=== PATIENT | male | born 1955 | race Caucasian/White ===

== ENCOUNTER 2018-04-20 05:29 | Inpatient (IN) ==
--- NOTE | 2018-04-20 06:00 | ED ---
HPI General Chief Complaint: Abdominal Pain Stated Complaint: Abd pain x 3 days Time Seen by Provider: 04/20/18 05:41 Source: patient and family Mode of arrival: ambulatory Limitations: no limitations History of Present Illness HPI narrative: 63-year-old male presents emerged from complaining of abdominal pain is been ongoing for the past 3 days or so. He reports that he had some myalgias, lethargy, ill feeling, and went to an urgent care. He states that the PA there gave a prescription for amoxicillin. No URI symptoms. No fever. No urinary symptoms. He states shortly after starting the antibiotic he began getting abdominal pain, concentrated in the left upper abdomen but radiating throughout the abdomen. He otherwise has been feeling generally well and healthy prior to this. No nausea or vomiting. Appetite's been a little bit down. No diarrhea. No urinary symptoms. Still no URI symptoms. No other complaints. Related Data Home Medications Medication Instructions Recorded Confirmed amoxicillin 250 mg PO BID 04/20/18 04/20/18 aspirin [Aspir-Low] 81 mg PO DAILY 04/20/18 04/20/18 Allergies Allergy/AdvReac Type Severity Reaction Status Date / Time No Known Allergies Allergy Verified 04/20/18 05:49 Review of Systems ROS: all other systems reviewed are negative [facility] Medical History Medical History History of transient ischemic attack (TIA) (Acute) Surgical History Surgical History History of orthopedic surgery (Acute) Hx of cornea transplant (Acute) Hx of hernia repair (Acute) Social History Social History Substance History: No History of Abuse Smoking Status: Never smoker How Often Do You Have a Drink Containing Alcohol: Never Recent Travel in [facility] within the Last 8 Weeks: No Recent Out of Country Travel within the Last 8 Weeks: No Immunization History Tetanus Immunization: <5 Years Exam Narrative Exam Narrative: GENERAL: Generally well-appearing 63-year-old man, no acute distress. SKIN: Focused skin assessment warm/dry. HEAD: Atraumatic. Normocephalic. EYES: Pupils equal and round. No scleral icterus. No injection or drainage. ENT: No nasal bleeding or discharge. Mucous membranes pink and moist. NECK: Trachea midline. No JVD. CARDIOVASCULAR: Regular rate and rhythm. No murmur appreciated. RESPIRATORY: No accessory muscle use. Clear to auscultation. Breath sounds equal bilaterally. GASTROINTESTINAL: Abdomen is flat and soft. Minimal tenderness throughout the abdomen, more on the left side, no rebound or guarding. MUSCULOSKELETAL: No obvious deformities. No clubbing. No cyanosis. No edema. NEUROLOGICAL: Awake and alert. No obvious cranial nerve deficits. Motor grossly within normal limits. Normal speech. PSYCHIATRIC: Appropriate mood and affect; insight and judgment normal. Course Initial Documented Vital Signs Temperature 97.3 F L 04/20/18 05:30 Pulse Rate 100 H 04/20/18 05:30 Respiratory Rate 18 04/20/18 05:30 Blood Pressure 140/76 04/20/18 05:30 Pulse Oximetry 97 04/20/18 05:30 Last Documented Vital Signs Temperature 97.3 F L 04/20/18 05:30 Pulse Rate 100 H 04/20/18 05:30 Respiratory Rate 18 04/20/18 05:30 Blood Pressure 140/76 04/20/18 05:30 Pulse Oximetry 97 04/20/18 05:30 Medical Decision Making MDM Narrative Medical decision making narrative: 63-year-old male presents emerged from complaining of generally feeling ill with myalgias and flulike symptoms but no URI symptoms, no definite fever, followed a day later with diffuse abdominal pain worse on the left, severe, but with minimal tenderness. This happened after starting antibiotic. I think the antibiotic is likely unrelated. Is not having other evidence of GI upset like vomiting nausea or diarrhea. Diverticulitis seems unlikely, kidney stone also seems possible. Will check labs, CT, UA, reassess. FINAL: CT with very unusual findings of hepatic homogenous abnormalities thought to be may be congestion, etiology is unclear, with a huge pericardial effusion, without tamponade physiologically, but etiology also unclear. Some loculated fluid in the abdomen my suspicion is possibly something systemic or rheumatologic. Occult malignancy in the liver seems unlikely especially given his normal liver and I spoke to Dr. Hadley conner, will plan on admitting for further evaluation. Medical Screen Exam Complete: Yes Emergency Medical Condition: Yes Lab Data Lab results reviewed: Yes I reviewed the patient's lab results. Result diagrams: 04/20/18 06:00 04/20/18 06:00 Lab Results 04/20/18 04/20/18 04/20/18 Range/Units 06:00 06:00 07:00 CBC w Diff Auto diff final WBC 7.6 (4.0-11.0) th/mm3 RBC 4.62 (4.50-5.90) mil/mm3 Hgb 12.8 L (13.0-17.0) gm/dL Hct 38.8 L (39.0-51.0) % MCV 84.1 (80.0-100.0) fL MCH 27.6 (27.0-34.0) pg MCHC 32.9 (32.0-36.0) % RDW 13.1 (11.6-17.2) % Plt Count 360 (150-450) th/mm3 MPV 8.8 (7.0-11.0) fL Neut % (Auto) 81.0 H (16.0-70.0) % Lymph % (Auto) 10.5 (9.0-44.0) % [place] % (Auto) 7.7 (0.0-8.0) % Eos % (Auto) 0.3 (0.0-4.0) % Baso % (Auto) 0.5 (0.0-2.0) % Neut # (Auto) 6.2 (1.8-7.7) th/mm3 Lymph # (Auto) 0.8 L (1.0-4.8) th/mm3 [place] # (Auto) 0.6 (0.0-0.9) th/mm3 Eos # (Auto) 0.0 (0.0-0.4) th/mm3 Baso # (Auto) 0.0 (0.0-0.2) th/mm3 WBC Differential . Differential Comment . Sodium 130 L (136-145) meq/L Potassium 5.1 (3.5-5.1) meq/L Chloride 96 L (98-107) meq/L Carbon Dioxide 27.1 (21.0-32.0) meq/L Anion Gap 7 (5-15) meq/L BUN 13 (7-18) mg/dL Creatinine 0.94 (0.60-1.30) mg/dL Estimated GFR 81 L (>89) mL/min Random Glucose 118 H (74-106) mg/dL Calcium 8.6 (8.5-10.1) mg/dL Magnesium 2.3 (1.5-2.5) mg/dL Total Bilirubin 1.0 (0.2-1.0) mg/dL AST 60 H (15-37) U/L ALT 66 (12-78) U/L Alkaline Phosphatase 111 (45-117) U/L Total Protein 7.8 (6.4-8.2) g/dL Albumin 3.0 L (3.4-5.0) g/dL Lipase 84 (73-393) U/L Ur Collection Type Clean catch Urine Color Yellow (Yellw/Straw) Urine Clarity Clear (Clear) Urine pH 6.5 (5.0-8.5) Ur Specific [place] 1.010 (1.002-1.035) Urine Protein Trace (Neg-Trace) mg/dL Urine Glucose (UA) Negative (Negative) mg/dL Urine Ketones Trace H (Negative) mg/dL Urine Occult Blood Trace (Negative) Urine Nitrate Negative (Negative) Urine Bilirubin Negative (Negative) Urine Ictotest Negative (Negative) Urine Urobilinogen 2.0 H (Less than 2) mg/dL Ur Leukocyte Esterase Negative (Negative) Urine RBC 0-3 (0-3) /hpf Urine WBC 0-5 (0-5) /hpf Ur Squamous Epith Cells 0-5 (0-5) /hpf Micro UA Comment Culture not ind Ur Microscopic Review Microscopic reviewed Urine Culture Comments Culture not ind Imaging Data Radiologist's impression: Abdomen/Pelvis CT 04/20/18 05:51 CONCLUSION: 1. Huge pericardial effusion. 2. Hepatomegaly and passive congestion of the liver. 3. There are pockets of fluid within the right lower quadrant with fluid in the pelvis and haziness of paracolic gutter on the right side extending to perinephric space and the exact etiology is uncertain. Inflammatory and/or traumatic causes should be entertained. Discharge Plan Discharge Disposition Patient Disposition: ED Admit(ED Internal Use Only) Discharge Order Discharge Orders: ED Use Only Admit Order (Routine); Ordered 04/20/18 Ordered By: Rudi Hernandez Physicians Team ED Provider: Rudi Hernandez Primary Care Provider: Primary Care EdwardiNathaly Rxs /Orders / Referrals /Forms Prescriptions: No Action aspirin [Aspir-Low] 81 mg Tablet,Delayed Release (Dr/Ec) 81 mg PO DAILY RF: 0 amoxicillin 250 mg Capsule 250 mg PO BID RF: 0 Discharge Interventions Interventions: Vital Signs Last Done: 04/20/18 05:30 Status ED Status: With Doctor
[2018-04-20 06:24] LABS: Chloride 96 meq/L (98-107); Potassium 5.1 meq/L (3.5-5.1); Sodium 130 meq/L (136-145)
[2018-04-20 06:27] LABS: Anion Gap 7 meq/L (5-15); Calcium 8.6 mg/dL (8.5-10.1); Carbon Dioxide 27.1 meq/L (21.0-32.0); Glucose,Random 118 mg/dL (74-106); Lipase 84 U/L (73-393); Magnesium 2.3 mg/dL (1.5-2.5)
[2018-04-20 06:28] LABS: Baso % (Auto) 0.5 % (0.0-2.0); Blood Urea Nitrogen 13 mg/dL (7-18); Eos % (Auto) 0.3 % (0.0-4.0); Hematocrit 38.8 % (39.0-51.0); Hemoglobin 12.8 gm/dL (13.0-17.0); Lymph # (Auto) 0.8 th/mm3 (1.0-4.8); Lymph % (Auto) 10.5 % (9.0-44.0); Mean Corpuscular HGB Conc 32.9 % (32.0-36.0); Mean Corpuscular Hemoglobin 27.6 pg (27.0-34.0); Mean Corpuscular Volume 84.1 fL (80.0-100.0); Mean Platelet Volume 8.8 fL (7.0-11.0); Mono # (Auto) 0.6 th/mm3 (0.0-0.9); Mono % (Auto) 7.7 % (0.0-8.0); Neut # (Auto) 6.2 th/mm3 (1.8-7.7); Platelet Count 360 th/mm3 (150-450); Red Blood Count 4.62 mil/mm3 (4.50-5.90); Red Cell Distribution Width 13.1 % (11.6-17.2); White Blood Count 7.6 th/mm3 (4.0-11.0)
[2018-04-20 06:31] LABS: Alanine Aminotransferase 66 U/L (12-78); Aspartate Aminotransferase 60 U/L (15-37); Glomerular Filtration Rate 81 mL/min (>89)
[2018-04-20 06:32] LABS: Total Protein 7.8 g/dL (6.4-8.2)
[2018-04-20 06:33] LABS: Alkaline Phosphatase 111 U/L (45-117)
[2018-04-20 07:02] LABS: Clarity,Urine Clear (Clear); Color,Urine Yellow (Yellw/Straw); Glucose,Urine (UA) Negative (Negative); Leukocyte Esterase,Urine Negative (Negative); Nitrite,Urine Negative (Negative); PH,Urine 6.5 (5.0-8.5)
[2018-04-20 07:11] LABS: Bilirubin,Urine Negative (Negative); Ictotest,Urine Negative (Negative)
--- NOTE | 2018-04-20 07:11 | CT ---
EXAM DATE: 04/20/2018 6:52 AM EST AGE/SEX: 63 years / Male INDICATIONS: Abdominal pain for three days. CLINICAL DATA: This is the patient's initial encounter. Patient reports that signs and symptoms have been present for 1 day and indicates a pain score of 7/10. MEDICAL/SURGICAL HISTORY: . Transient ischemic attack. . Orthopedic. Cornea transplant. Hernia repair. ORAL CONTRAST: No oral contrast ingested. RADIATION DOSE: 14.87 CTDI (mGy) COMPARISON: No prior exams available for comparison. TECHNIQUE: Multiple contiguous axial images were obtained through the abdomen and pelvis following b olus infusion of 90 ml Omnipaque 350 (iohexol) nonionic water-soluble contrast as a single exam dos e. No oral contrast ingested. Using automated exposure control and adjustment of the mA and/or kV ac cording to patient size, radiation dose was kept as low as reasonably achievable to obtain optimal di agnostic quality images. DICOM format image data is available electronically for review and comparis on. FINDINGS: Abdomen CT: Liver measures 21 cm in craniocaudal dimensions without focal lesions, however the liver appears inho mogeneous partly due to congestion and possibility of heart failure should be entertained.. There is a huge pericardial effusion maximum transverse diameter of 3.9 cm. Small bilateral pleural effusions are present. Slight bilateral lung base atelectasis and/or infiltrate is seen. The spleen, pancreas , kidneys, adrenals are unremarkable. There is no evidence for any appreciable pathological adenopath y, free fluid, or bowel obstruction. Pelvic CT: There is no evidence for mass, abscess formation, or any significant adenopathy within the pelvis. T here is slight fluid within the pelvis intraperitoneal cavity. There are additional pockets of locula rosina fluid in right lower quadrant with haziness to the fat planes around the right kidney extending t o Gerota's fascia and paracolic gutter. There is haziness of the fat planes at this site and the exac t etiology is uncertain. Inflammatory and/or traumatic causes should be entertained. CONCLUSION: 1. Huge pericardial effusion. 2. Hepatomegaly and passive congestion of the liver. 3. There are pockets of fluid within the right lower quadrant with fluid in the pelvis and haziness of paracolic gutter on the right side extending to perinephric space and the exact etiology is uncert ain. Inflammatory and/or traumatic causes should be entertained. Electronically signed by: Melisa Mathews MD Board Certified Radiologist 04/20/2018 7:10 AM EST
[2018-04-20 07:12] LABS: RBC,Urine 0-3 /hpf (0-3); Squamous Epithelial Cell,Urine 0-5 /hpf (0-5); WBC,Urine 0-5 /hpf (0-5)
--- NOTE | 2018-04-20 10:23 | ECHRPT ---
Indication: Effusion CONCLUSIONS Normal left ventricular size. Wall thickness is measured at the upper limits of normal. The left ventricular systolic function is normal with an estimated ejection fraction in the range of 55-60%. Mitral annular calcification is present. Aortic valve sclerosis is present. There is trace tricuspid valve regurgitation. The estimated pulmonary arterial pressure is 39 mmHg. There is large pericardial effusion present (2.5-3cm). The possibility of hemodynamic compromise cannot be excluded on the basis of the available images. Clinical correlation is recommended; positioning was limited but there does appear to be early signs of tamponade w/some RV collapse and increased respirophasic changes in transvalvular flow velocities. BP: / HR: Rhythm: MEASUREMENTS (Male / Female) Normal Values Technical Quality:Fair 2D ECHO LV Diastolic Diameter PLAX 4.0 cm 4.2 - 5.9 / 3.9 - 5.3 cm LV Systolic Diameter PLAX 2.8 cm IVS Diastolic Thickness 0.9 cm 0.6 - 1.0 / 0.6 - 0.9 cm LVPW Diastolic Thickness 1.0 cm 0.6 - 1.0 / 0.6 - 0.9 cm LV Relative Wall Thickness 0.5 RV Internal Dim ED PLAX 2.9 cm LVOT Diameter 2.0 cm Aortic Root Diameter 3.1 cm LA Systolic Diameter LX 3.3 cm 3.0 - 4.0 / 2.7 - 3.8 cm DOPPLER AV Peak Velocity 144.0 cm/s AV Peak Gradient 8.3 mmHg LVOT Peak Velocity 85.9 cm/s LVOT Peak Gradient 3.0 mmHg AV Area Cont Eq pk 1.9 cm Mitral E Point Velocity 53.8 cm/s Mitral A Point Velocity 80.5 cm/s Mitral E to A Ratio 0.7 LV E' Lateral Velocity 5.9 cm/s Mitral E to LV E' Lateral Ratio 9.0 LV E' Septal Velocity 6.1 cm/s Mitral E to LV E' Septal Ratio 8.8 TR Peak Velocity 269.0 cm/s TR Peak Gradient 28.9 mmHg Right Atrial Pressure 10.0 mmHg Pulmonary Artery Systolic Pressu 38.9 mmHg Right Ventricular Systolic Press 38.9 mmHg PV Peak Velocity 86.9 cm/s PV Peak Gradient 3.0 mmHg FINDINGS LEFT VENTRICLE Normal left ventricular size. Wall thickness is measured at the upper limits of normal. The left ventricular systolic function is normal with an estimated ejection fraction in the range of 55-60%. RIGHT VENTRICLE Normal right ventricular size and systolic function. LEFT ATRIUM The left atrial size is normal. RIGHT ATRIUM The right atrial size is normal. ATRIAL SEPTUM Normal atrial septal thickness without atrial level shunting by limited color doppler interrogation. AORTA The aortic root and proximal ascending aorta are normal in size on limited imaging. MITRAL VALVE Mitral annular calcification is present. AORTIC VALVE Trileaflet aortic valve. Aortic valve sclerosis is present. TRICUSPID VALVE There is trace tricuspid valve regurgitation. The estimated pulmonary arterial pressure is 39 mmHg. PULMONARY VALVE The pulmonary valve is not well visualized. VESSELS The inferior vena cava was not well visualized. PERICARDIUM There is large pericardial effusion present. The possibility of hemodynamic compromise cannot be excluded on the basis of the available images. Clinical correlation is recommended.. Arik Sweeney MD (Electronically Signed) Final Date:20 April 2018 10:23
[2018-04-20] MEDS: Morphine Inj 4 MG/ML Vial IV.PUSH PRN ×2 (10:43→18:07)
--- NOTE | 2018-04-20 11:02 | P.HPIM ---
History of Present Illness Primary Care Physician: No Primary Care Physician Chief Complaint: ' I'm not feeling good'. History of Present Illness: patient is a 63 y/o male with history of TIA- otherwise with no other significant past medical history, who presented to ER with generalized body ache and some pain to the left lower chest and RUQ. he says that he hasn't been feeling well for the past few days with generalized body ache and malaise. he says that he was prescribed amoxicillin three days ago but it didn't seem to be helping him. he says that he started to have some pain to the left lower chest and RUQ. pain was mild to moderate in intensity. he denies any fever, chills,cough, nausea/ vomiting or diarrhea. he says that he had a swelling of his left little finger in summer which went away on its own. otherwise he doesn't recall any other joint swelling. he denies any recent trauma. Inpatient Certification Inpatient Certification: I certify that the inpatient services were ordered in accordance with Medicare regulations governing the order. This includes certification that hospital inpatient services are reasonable and necessary and in the case of services not specified as inpatient-only under 42 CFR 419.22(n), that they are appropriately provided as inpatient services in accordance to with the 2-midnight benchmark under 43 CFR 412.3(e) Estimated Total Length of Stay (Days): 2 Plans for Post Hospital Care: Home Review of Systems Review of Systems: all other systems reviewed are negative [facility] Medical History Medical History History of transient ischemic attack (TIA) (Acute) Surgical History Surgical History History of orthopedic surgery (Acute) Hx of cornea transplant (Acute) Hx of hernia repair (Acute) Social History Social History Substance History: No History of Abuse Second Hand Smoke Exposure: No Smoking Status: Never smoker How Often Do You Have a Drink Containing Alcohol: Never Recent Travel in [facility] within the Last 8 Weeks: No Recent Out of Country Travel within the Last 8 Weeks: No Immunization History Tetanus Immunization: >5 Years Hx Influenza Vaccine This Season: Yes Medications and Allergies Allergies Allergy/AdvReac Type Severity Reaction Status Date / Time No Known Allergies Allergy Verified 04/20/18 05:49 Home Medications Medication Instructions Recorded Confirmed Type amoxicillin 250 mg PO BID 04/20/18 04/20/18 History aspirin [Aspir-Low] 81 mg PO DAILY 04/20/18 04/20/18 History Active Medications: Active Medications Sodium Chloride (1/2 Normal Saline Inj) 1,000 mls @ 50 mls/hr IV.CONT .Q20H JOHN Morphine Sulfate (Morphine Inj) 2 mg IV.PUSH Q4H PRN PRN Reason: PAIN 1-10 AND/OR FEVER >101F Last Admin: 04/20/18 10:43 Dose: 2 mg Sodium Chloride (Ns Flush) 2 ml IV.FLUSH PRN PRN PRN Reason: FLUSH AFTER USING IV ACCESS Last Admin: 04/20/18 10:44 Dose: 2 ml Physical Exam Vital signs: Last Vital Signs Temp 96.9 F L 04/20/18 09:05 Pulse 94 H 04/20/18 09:05 Resp 18 04/20/18 09:05 BP 133/77 04/20/18 09:05 Pulse Ox 97 04/20/18 09:05 Intake & Output 04/18/18 04/19/18 04/20/18 04/21/18 06:59 06:59 06:59 06:59 Weight 87.9 kg Constitutional no acute distress Routine HEENT Exam Eye: Present PERRL Routine Neck Exam Present supple Routine Chest/Breast/Axilla Exam Chest wall: Present tenderness Comments: mildly tender in left lower chest. Routine Respiratory Exam Present CTA bilaterally Routine Cardiovascular Exam Present RRR Routine Abdominal Exam Present soft and tenderness Comments: mildly tender in RUQ. Routine Extremities Exam Comments: no pedal edema. Routine Neurological Exam Present alert and oriented X3 Results Labs CBC & Chem 7: 04/20/18 06:00 04/20/18 06:00 Imaging Impressions Abdomen/Pelvis CT 04/20/18 05:51 CONCLUSION: 1. Huge pericardial effusion. 2. Hepatomegaly and passive congestion of the liver. 3. There are pockets of fluid within the right lower quadrant with fluid in the pelvis and haziness of paracolic gutter on the right side extending to perinephric space and the exact etiology is uncertain. Inflammatory and/or traumatic causes should be entertained. Caprini VTE Risk Assessment Caprini VTE Risk Assessment: Moderate/High Risk (score >= 2) Caprini Risk Assessment Model: Point Value = 1 Point Value = 2 Point Value = 3 Point Value = 5 Age 41-60 Minor surgery BMI > 25 kg/m2 Swollen legs Varicose veins or History of unexplained or recurrent spontaneous Oral contraceptives or hormone replacement Sepsis (< 1 month) Serious lung disease, including pneumonia (< 1 month) Abnormal pulmonary function Acute myocardial infarction Congestive heart failure (< 1 month) History of inflammatory bowel disease Medical patient at bed rest Age 61-74 Arthroscopic surgery Major open surgery (> 45 min) Laparoscopic surgery (> 45 min) Malignancy Confined to bed (> 72 hours) Immobilizing plaster cast Central venous access Age >= 75 History of VTE Family history of VTE Factor V Leiden Prothrombin [id number] Lupus anticoagulant Anticardiolipin antibodies Elevated serum homocysteine Heparin-induced thrombocytopenia Other congenital or acquired thrombophilia Stroke (< 1 month) Elective arthroplasty Hip, pelvis, or leg fracture Acute spinal cord injury (< 1 month) Prophylaxis Regimen: Total Risk Factor Score Risk Level Prophylaxis Regimen 0-1 Low Early ambulation 2 Moderate Order ONE of the following: *Sequential Compression Device (SCD) *Heparin 5000 units SQ BID 3-4 Higher Order ONE of the following medications: *Heparin 5000 units SQ TID *Enoxaparin/Lovenox 40 mg SQ daily (WT < 150 kg, CrCl > 30 mL/min) *Enoxaparin/Lovenox 30 mg SQ daily (WT < 150 kg, CrCl > 10-29 mL/min) *Enoxaparin/Lovenox 30 mg SQ BID (WT < 150 kg, CrCl > 30 mL/min) AND/OR *Sequential Compression Device (SCD) 5 or more Highest Order ONE of the following medications: *Heparin 5000 units SQ TID (Preferred with Epidurals) *Enoxaparin/Lovenox 40 mg SQ daily (WT < 150 kg, CrCl > 30 mL/min) *Enoxaparin/Lovenox 30 mg SQ daily (WT < 150 kg, CrCl > 10-29 mL/min) *Enoxaparin/Lovenox 30 mg SQ BID (WT < 150 kg, CrCl > 30 mL/min) AND *Sequential Compression Device (SCD) Assessment and Plan Plan A/P - large pericardial effusion echo/ EKG stat were ordered- will check ESR- will consult Cardiology. he was prescribed Amoxicillin few days ago for possible ' flu'. -abdominal pain/elevated AST CT of the abdomen with pockets of fluid within the right lower quadrant with fluid in the pelvis and haziness of paracolic gutter on the right side . will consult GI- continue with pain control. -DVT prophylaxis with SCD's case was d/w ; will upgrade the patient to ICU and will transfer to main [facility] for further evaluation. Discussed Condition With: ER physician/ , the patient and the family. H&P: Quality VTE Deep Vein Thrombosis/Pulmonary Embolism Present on Admission: No
[2018-04-20] MEDS ORDERED: Lidocaine 1%/Epinephrine 1:100,000 Inj 50 ML Vial ONE (12:17)
[2018-04-20 12:27] LABS: INR 1.1 Ratio; Prothrombin Time 11.4 sec (9.8-11.6)
[2018-04-20] MEDS ORDERED: fentaNYL Citrate Inj 250 MCG/5 ML Ampul ONE (12:28)
[2018-04-20] MEDS: Sodium Chloride 0.45 % Inj 1,000 ML IV.CONT SCH ×2 (13:06→19:47)
--- NOTE | 2018-04-20 13:24 | P.CONGI ---
History of Present Illness Consult date: 04/20/18 Consult reason: abdominal pain Chief complaint: Pericardial Effusion Hepatic congestion History of Present Illness: This is a 63 y/o male with history of TIA-otherwise with no other significant past medical history, who presented to ER with severe pain to the left lower chest and LUQ area with radiation to entire stomach. States he had flu like symptoms for a couple of weeks with body ache and malaise. He was prescribed amoxicillin at the walk in clinic with out relief. He denies any fever, chills, cough, nausea, vomiting, diarrhea or bleeding. Abdomen/Pelvis CT 04/20/18 Huge pericardial effusion. Hepatomegaly and passive congestion of the liver. There are pockets of fluid within the right lower quadrant with fluid in the pelvis and haziness of paracolic gutter on the right side extending to perinephric space and the exact etiology is uncertain. Inflammatory and/or traumatic causes should be entertained. Patient had colonoscopy many yrs ago. <Max Elizondo - Last Filed: 04/20/18 13:09> Review of Systems All other systems reviewed negative except as stated in HPI <Max Elizondo - Last Filed: 04/20/18 13:09> PMFSH - History History Provided By: Patient - Medical History Medical History: Medical History (Last Reviewed 04/20/18 @ 11:06 by Ted Treadwell MD) History of transient ischemic attack (TIA) - Surgical History Surgical History: Surgical History (Last Reviewed 04/20/18 @ 11:06 by Ted Treadwell MD) History of orthopedic surgery Hx of cornea transplant Hx of hernia repair - Family History Family History: Family History (Last Reviewed 04/20/18 @ 05:59 by Rudi Hernandez MD) Mother Colon cancer - Tobacco History Second Hand Smoke Exposure: No Tobacco Use In Past 30 Days: No Smoking Status: Never smoker - Alcohol History How Often Do You Have a Drink Containing Alcohol: Never - Substance Use History Substance History: No History of Abuse - Travel History Recent Travel in the [place] Within the Last 8 Weeks: No Recent Travel Out of the Country Within the Last 8 Weeks: No - Immunization History Tetanus Immunization: >5 Years Hx Influenza Vaccine This Season: Yes <Max Elizondo - Last Filed: 04/20/18 13:09> - Medical History Medical History: Medical History (Last Reviewed 04/20/18 @ 11:06 by Ted Treadwell MD) History of transient ischemic attack (TIA) - Surgical History Surgical History: Surgical History (Last Reviewed 04/20/18 @ 11:06 by Ted Treadwell MD) History of orthopedic surgery Hx of cornea transplant Hx of hernia repair - Family History Family History: Family History (Last Reviewed 04/20/18 @ 05:59 by Rudi Hernandez MD) Mother Colon cancer <Lenora Bobby - Last Filed: 04/20/18 17:52> Medications and Allergies Active Medications: Active Medications Sodium Chloride (1/2 Normal Saline Inj) 1,000 mls @ 50 mls/hr IV.CONT .Q20H [facility] Last Admin: 04/20/18 13:06 Dose: Not Given Morphine Sulfate (Morphine Inj) 2 mg IV.PUSH Q4H PRN PRN Reason: PAIN 1-10 AND/OR FEVER >101F Last Admin: 04/20/18 10:43 Dose: 2 mg Sodium Chloride (Ns Flush) 2 ml IV.FLUSH PRN PRN PRN Reason: FLUSH AFTER USING IV ACCESS Last Admin: 04/20/18 10:44 Dose: 2 ml <Max Elizondo - Last Filed: 04/20/18 13:09> Active Medications: Active Medications Sodium Chloride (1/2 Normal Saline Inj) 1,000 mls @ 50 mls/hr IV.CONT .Q20H JOHN Last Admin: 04/20/18 13:06 Dose: Not Given Morphine Sulfate (Morphine Inj) 2 mg IV.PUSH Q4H PRN PRN Reason: PAIN 1-10 AND/OR FEVER >101F Last Admin: 04/20/18 10:43 Dose: 2 mg Sodium Chloride (Ns Flush) 2 ml IV.FLUSH PRN PRN PRN Reason: FLUSH AFTER USING IV ACCESS Last Admin: 04/20/18 10:44 Dose: 2 ml <Lenora Bobby - Last Filed: 04/20/18 17:52> Allergies Allergy/AdvReac Type Severity Reaction Status Date / Time No Known Allergies Allergy Verified 04/20/18 05:49 Home Medications Medication Instructions Recorded Confirmed Type amoxicillin 250 mg PO BID 04/20/18 04/20/18 History aspirin [Aspir-Low] 81 mg PO DAILY 04/20/18 04/20/18 History Exam Vital signs: Vital Signs 04/20/18 05:30 04/20/18 08:08 04/20/18 09:00 Temperature 97.3 F L Pulse Rate 100 H 95 H 94 H Respiratory Rate 18 16 Blood Pressure 140/76 104/66 Pulse Oximetry 97 95 04/20/18 09:05 04/20/18 10:45 Temperature 96.9 F L Pulse Rate 94 H Respiratory Rate 18 18 Blood Pressure 133/77 Pulse Oximetry 97 Intake & Output 04/19/18 04/20/18 04/20/18 18:59 06:59 18:59 Weight 87.9 kg 87.9 kg Other: Weight On Admission 87.9 kg - Constitutional no acute distress - Routine HEENT Exam Head: Present: normocephalic - Routine Respiratory Exam Present: CTA bilaterally - Routine Cardiovascular Exam Present: RRR - Routine Abdominal Exam Present: soft, normoactive bowel sounds. Absent: tenderness, distended, rebound - Routine Skin Exam Present: intact, dry. Absent: jaundice - Routine Neurological Exam Present: alert, oriented X3 <CaroMax - Last Filed: 04/20/18 13:09> Vital signs: Vital Signs 04/20/18 05:30 04/20/18 08:08 04/20/18 09:00 Temperature 97.3 F L Pulse Rate 100 H 95 H 94 H Respiratory Rate 18 16 Blood Pressure 140/76 104/66 Pulse Oximetry 97 95 04/20/18 09:05 04/20/18 10:45 04/20/18 12:00 Temperature 96.9 F L Pulse Rate 94 H 97 H Respiratory Rate 18 18 38 H Blood Pressure 133/77 Pulse Oximetry 97 93 L 04/20/18 12:25 04/20/18 12:30 04/20/18 12:45 Temperature Pulse Rate 94 H 95 H Respiratory Rate 14 24 Blood Pressure Pulse Oximetry 95 94 L 94 L 04/20/18 13:00 04/20/18 13:15 04/20/18 13:27 Temperature Pulse Rate 93 H 96 H 100 H Respiratory Rate 35 H 32 H 43 H Blood Pressure Pulse Oximetry 94 L 95 94 L 04/20/18 13:28 04/20/18 13:30 04/20/18 13:33 Temperature Pulse Rate 97 H 95 H Respiratory Rate 0 L 0 L Blood Pressure 142/76 H 154/88 H Pulse Oximetry 95 94 L 04/20/18 13:38 04/20/18 13:43 04/20/18 13:45 Temperature Pulse Rate 94 H 92 H 89 Respiratory Rate 25 H 21 32 H Blood Pressure 139/79 144/75 H Pulse Oximetry 96 96 95 04/20/18 13:48 04/20/18 13:53 04/20/18 13:58 Temperature Pulse Rate 94 H 98 H 101 H Respiratory Rate 25 H 21 33 H Blood Pressure 153/77 H 144/68 H 159/72 H Pulse Oximetry 96 95 94 L 04/20/18 14:00 04/20/18 14:08 04/20/18 14:13 Temperature Pulse Rate 100 H 101 H 102 H Respiratory Rate 30 H 40 H 37 H Blood Pressure 165/79 H 169/80 H Pulse Oximetry 90 L 89 L 87 L 04/20/18 14:15 04/20/18 14:18 04/20/18 14:23 Temperature Pulse Rate 102 H 101 H 101 H Respiratory Rate 34 H 29 H 34 H Blood Pressure 170/81 H 173/77 H Pulse Oximetry 89 L 92 L 94 L 04/20/18 14:30 04/20/18 14:32 04/20/18 14:45 Temperature Pulse Rate 100 H 100 H 105 H Respiratory Rate 36 H 37 H 39 H Blood Pressure 166/77 H Pulse Oximetry 95 95 96 04/20/18 14:47 04/20/18 15:00 04/20/18 15:02 Temperature Pulse Rate 106 H 101 H 105 H Respiratory Rate 38 H 42 H 35 H Blood Pressure 166/78 H 172/89 H Pulse Oximetry 95 95 95 04/20/18 15:03 04/20/18 15:15 04/20/18 15:30 Temperature Pulse Rate 104 H 102 H 103 H Respiratory Rate 38 H 31 H 40 H Blood Pressure 159/78 H Pulse Oximetry 95 93 L 94 L 04/20/18 15:45 04/20/18 16:00 04/20/18 16:15 Temperature 98 F Pulse Rate 102 H 101 H 103 H Respiratory Rate 25 H 31 H 21 Blood Pressure 159/84 H Pulse Oximetry 96 95 95 04/20/18 16:30 Temperature Pulse Rate 104 H Respiratory Rate 23 Blood Pressure Pulse Oximetry 95 Intake & Output 04/19/18 04/20/18 04/20/18 18:59 06:59 18:59 Weight 87.9 kg 87.9 kg Other: Date of Last Bowel Movement 04/17/18 Weight On Admission 87.9 kg <Lenora Bobby - Last Filed: 04/20/18 17:52> Results - Labs CBC & Chem 7: 04/20/18 06:00 04/20/18 06:00 Labs: Laboratory Results - last 24 hr 04/20/18 04/20/18 04/20/18 06:00 06:00 06:00 CBC w Diff Auto diff final WBC 7.6 RBC 4.62 Hgb 12.8 L Hct 38.8 L MCV 84.1 MCH 27.6 MCHC 32.9 RDW 13.1 Plt Count 360 MPV 8.8 Neut % (Auto) 81.0 H Lymph % (Auto) 10.5 [place] % (Auto) 7.7 Eos % (Auto) 0.3 Baso % (Auto) 0.5 Neut # (Auto) 6.2 Lymph # (Auto) 0.8 L [place] # (Auto) 0.6 Eos # (Auto) 0.0 Baso # (Auto) 0.0 WBC Differential . Differential Comment . ESR 72 H PT INR APTT Sodium 130 L Potassium 5.1 Chloride 96 L Carbon Dioxide 27.1 Anion Gap 7 BUN 13 Creatinine 0.94 Estimated GFR 81 L Random Glucose 118 H Calcium 8.6 Magnesium 2.3 Total Bilirubin 1.0 AST 60 H ALT 66 Alkaline Phosphatase 111 C-Reactive Protein Total Protein 7.8 Albumin 3.0 L Lipase 84 Ur Collection Type Urine Color Urine Clarity Urine pH Ur Specific [place] Urine Protein Urine Glucose (UA) Urine Ketones Urine Occult Blood Urine Nitrate Urine Bilirubin Urine Ictotest Urine Urobilinogen Ur Leukocyte Esterase Urine RBC Urine WBC Ur Squamous Epith Cells Micro UA Comment Ur Microscopic Review Urine Culture Comments Rheumatoid Factor Scrn Rheumatoid Factor Titer 04/20/18 04/20/18 04/20/18 06:00 07:00 12:00 CBC w Diff WBC RBC Hgb Hct MCV MCH MCHC RDW Plt Count MPV Neut % (Auto) Lymph % (Auto) [place] % (Auto) Eos % (Auto) Baso % (Auto) Neut # (Auto) Lymph # (Auto) [place] # (Auto) Eos # (Auto) Baso # (Auto) WBC Differential Differential Comment ESR PT INR APTT Sodium Potassium Chloride Carbon Dioxide Anion Gap BUN Creatinine Estimated GFR Random Glucose Calcium Magnesium Total Bilirubin AST ALT Alkaline Phosphatase C-Reactive Protein 8.16 H Total Protein Albumin Lipase Ur Collection Type Clean catch Urine Color Yellow Urine Clarity Clear Urine pH 6.5 Ur Specific [place] 1.010 Urine Protein Trace Urine Glucose (UA) Negative Urine Ketones Trace H Urine Occult Blood Trace Urine Nitrate Negative Urine Bilirubin Negative Urine Ictotest Negative Urine Urobilinogen 2.0 H Ur Leukocyte Esterase Negative Urine RBC 0-3 Urine WBC 0-5 Ur Squamous Epith Cells 0-5 Micro UA Comment Culture not ind Ur Microscopic Review Microscopic reviewed Urine Culture Comments Culture not ind Rheumatoid Factor Scrn Negative Rheumatoid Factor Titer Not Reportable 04/20/18 04/20/18 12:00 12:00 CBC w Diff WBC RBC Hgb Hct MCV MCH MCHC RDW Plt Count MPV Neut % (Auto) Lymph % (Auto) [place] % (Auto) Eos % (Auto) Baso % (Auto) Neut # (Auto) Lymph # (Auto) [place] # (Auto) Eos # (Auto) Baso # (Auto) WBC Differential Differential Comment ESR PT 11.4 INR 1.1 APTT 33.6 H Sodium Potassium Chloride Carbon Dioxide Anion Gap BUN Creatinine Estimated GFR Random Glucose Calcium Magnesium Total Bilirubin AST ALT Alkaline Phosphatase C-Reactive Protein Total Protein Albumin Lipase Ur Collection Type Urine Color Urine Clarity Urine pH Ur Specific [place] Urine Protein Urine Glucose (UA) Urine Ketones Urine Occult Blood Urine Nitrate Urine Bilirubin Urine Ictotest Urine Urobilinogen Ur Leukocyte Esterase Urine RBC Urine WBC Ur Squamous Epith Cells Micro UA Comment Ur Microscopic Review Urine Culture Comments Rheumatoid Factor Scrn Rheumatoid Factor Titer - Imaging Impressions Abdomen/Pelvis CT 04/20/18 05:51 CONCLUSION: 1. Huge pericardial effusion. 2. Hepatomegaly and passive congestion of the liver. 3. There are pockets of fluid within the right lower quadrant with fluid in the pelvis and haziness of paracolic gutter on the right side extending to perinephric space and the exact etiology is uncertain. Inflammatory and/or traumatic causes should be entertained. <Max Elizondo - Last Filed: 04/20/18 13:09> - Labs CBC & Chem 7: 04/20/18 06:00 04/20/18 06:00 Labs: Laboratory Results - last 24 hr 04/20/18 04/20/18 04/20/18 06:00 06:00 06:00 CBC w Diff Auto diff final WBC 7.6 RBC 4.62 Hgb 12.8 L Hct 38.8 L MCV 84.1 MCH 27.6 MCHC 32.9 RDW 13.1 Plt Count 360 MPV 8.8 Neut % (Auto) 81.0 H Lymph % (Auto) 10.5 [place] % (Auto) 7.7 Eos % (Auto) 0.3 Baso % (Auto) 0.5 Neut # (Auto) 6.2 Lymph # (Auto) 0.8 L [place] # (Auto) 0.6 Eos # (Auto) 0.0 Baso # (Auto) 0.0 WBC Differential . Differential Comment . ESR 72 H PT INR APTT Sodium 130 L Potassium 5.1 Chloride 96 L Carbon Dioxide 27.1 Anion Gap 7 BUN 13 Creatinine 0.94 Estimated GFR 81 L Random Glucose 118 H Calcium 8.6 Magnesium 2.3 Total Bilirubin 1.0 AST 60 H ALT 66 Alkaline Phosphatase 111 C-Reactive Protein Total Protein 7.8 Albumin 3.0 L Lipase 84 Ur Collection Type Urine Color Urine Clarity Urine pH Ur Specific [place] Urine Protein Urine Glucose (UA) Urine Ketones Urine Occult Blood Urine Nitrate Urine Bilirubin Urine Ictotest Urine Urobilinogen Ur Leukocyte Esterase Urine RBC Urine WBC Ur Squamous Epith Cells Micro UA Comment Ur Microscopic Review Urine Culture Comments [place] pH [place] RBC [place] Nuc Cells [place] Neutrophils [place] Lymphocytes [place] Histiocytes [place] Fld Comment [place] Total Protein Pericardial LDH Pericardial Glucose Rheumatoid Factor Scrn Rheumatoid Factor Titer 04/20/18 04/20/18 04/20/18 06:00 07:00 12:00 CBC w Diff WBC RBC Hgb Hct MCV MCH MCHC RDW Plt Count MPV Neut % (Auto) Lymph % (Auto) [place] % (Auto) Eos % (Auto) Baso % (Auto) Neut # (Auto) Lymph # (Auto) [place] # (Auto) Eos # (Auto) Baso # (Auto) WBC Differential Differential Comment ESR PT INR APTT Sodium Potassium Chloride Carbon Dioxide Anion Gap BUN Creatinine Estimated GFR Random Glucose Calcium Magnesium Total Bilirubin AST ALT Alkaline Phosphatase C-Reactive Protein 8.16 H Total Protein Albumin Lipase Ur Collection Type Clean catch Urine Color Yellow Urine Clarity Clear Urine pH 6.5 Ur Specific [place] 1.010 Urine Protein Trace Urine Glucose (UA) Negative Urine Ketones Trace H Urine Occult Blood Trace Urine Nitrate Negative Urine Bilirubin Negative Urine Ictotest Negative Urine Urobilinogen 2.0 H Ur Leukocyte Esterase Negative Urine RBC 0-3 Urine WBC 0-5 Ur Squamous Epith Cells 0-5 Micro UA Comment Culture not ind Ur Microscopic Review Microscopic reviewed Urine Culture Comments Culture not ind [place] pH [place] RBC [place] Nuc Cells [place] Neutrophils [place] Lymphocytes [place] Histiocytes [place] Fld Comment [place] Total Protein Pericardial LDH Pericardial Glucose Rheumatoid Factor Scrn Negative Rheumatoid Factor Titer Not Reportable 04/20/18 04/20/18 04/20/18 12:00 12:00 14:00 CBC w Diff WBC RBC Hgb Hct MCV MCH MCHC RDW Plt Count MPV Neut % (Auto) Lymph % (Auto) [place] % (Auto) Eos % (Auto) Baso % (Auto) Neut # (Auto) Lymph # (Auto) [place] # (Auto) Eos # (Auto) Baso # (Auto) WBC Differential Differential Comment ESR PT 11.4 INR 1.1 APTT 33.6 H Sodium Potassium Chloride Carbon Dioxide Anion Gap BUN Creatinine Estimated GFR Random Glucose Calcium Magnesium Total Bilirubin AST ALT Alkaline Phosphatase C-Reactive Protein Total Protein Albumin Lipase Ur Collection Type Urine Color Urine Clarity Urine pH Ur Specific [place] Urine Protein Urine Glucose (UA) Urine Ketones Urine Occult Blood Urine Nitrate Urine Bilirubin Urine Ictotest Urine Urobilinogen Ur Leukocyte Esterase Urine RBC Urine WBC Ur Squamous Epith Cells Micro UA Comment Ur Microscopic Review Urine Culture [place] [address] H [place] Nuc Cells 5879 H [place] Neutrophils 92 [place] Lymphocytes 7 [place] Histiocytes 1 [place] Fld Comment [place] Total Protein Pericardial LDH Pericardial Glucose Rheumatoid Factor Scrn Rheumatoid Factor Titer 04/20/18 14:00 CBC w Diff WBC RBC Hgb Hct MCV MCH MCHC RDW Plt Count MPV Neut % (Auto) Lymph % (Auto) [place] % (Auto) Eos % (Auto) Baso % (Auto) Neut # (Auto) Lymph # (Auto) [place] # (Auto) Eos # (Auto) Baso # (Auto) WBC Differential Differential Comment ESR PT INR APTT Sodium Potassium Chloride Carbon Dioxide Anion Gap BUN Creatinine Estimated GFR Random Glucose Calcium Magnesium Total Bilirubin AST ALT Alkaline Phosphatase C-Reactive Protein Total Protein Albumin Lipase Ur Collection Type Urine Color Urine Clarity Urine pH Ur Specific [place] Urine Protein Urine Glucose (UA) Urine Ketones Urine Occult Blood Urine Nitrate Urine Bilirubin Urine Ictotest Urine Urobilinogen Ur Leukocyte Esterase Urine RBC Urine WBC Ur Squamous Epith Cells Micro UA Comment Ur Microscopic Review Urine Culture Comments [place] pH 8.0 [place] RBC [place] Nuc Cells [place] Neutrophils [place] Lymphocytes Per[place] Histiocytes [place] Fld Comment [place] Total Protein 5.7 Pericardial LDH 476 Pericardial Glucose 88 Rheumatoid Factor Scrn Rheumatoid Factor Titer - Imaging Impressions Abdomen/Pelvis CT 04/20/18 05:51 CONCLUSION: 1. Huge pericardial effusion. 2. Hepatomegaly and passive congestion of the liver. 3. There are pockets of fluid within the right lower quadrant with fluid in the pelvis and haziness of paracolic gutter on the right side extending to perinephric space and the exact etiology is uncertain. Inflammatory and/or traumatic causes should be entertained. <Lenora Bobby - Last Filed: 04/20/18 17:52> Assessment and Plan - Plan - Abdominal pain- Started for a couple of days , pain became severe, pain to the left lower chest and LUQ area with radiation to entire stomach. States he had flu like symptoms for a couple of weeks with body ache and malaise. He was prescribed amoxicillin at the walk in clinic with out relief. He denies any fever, chills, cough, nausea, vomiting, diarrhea or bleeding. Abdomen/Pelvis CT 04/20/18 CONCLUSION: 1. Huge pericardial effusion. 2. Hepatomegaly and passive congestion of the liver. 3. There are pockets of fluid within the right lower quadrant with fluid in the pelvis and haziness of paracolic gutter on the right side extending to perinephric space and the exact etiology is uncertain. Inflammatory and/or traumatic causes should be entertained. - Elevated CRP - Pericardial effusion- Cardiology on the case - Elevated AST- Denies alcohol or past liver issues, likely secondary to stress and cardiac related. Plan: - NPO - Await cardiology work up - JEANETTE, AMA, ASMA, ceruloplasmin, alpha 1 antitrypsin iron studies, Fe, celiac panel, hepatitis panel - Consider SBFT - Monitor labs - Supportive care - Pt seen and examined by Dr. Bobby and myself and this note is written on her behalf. <Max Elizondo - Last Filed: 04/20/18 13:09> - Attending Attestation seen, examined agree with above <Lenora Bobby - Last Filed: 04/20/18 17:52>
--- NOTE | 2018-04-20 13:51 | P.RAD ---
Post CT Procedure Prog Note - Procedure Information Procedure Date: 04/20/18 Supervising Radiologist: Yung Rodriguez MD Estimated blood loss (mL): 0 Anesthesia: Conscious Sedation - Plan of Activity Patient to Unit: Nursing Unit Patient condition: Good See PACS Report for procedural detail/treatment.
--- NOTE | 2018-04-20 15:24 | ECG ---
Date Performed: 04/20/2018 Time Performed: 08:36:20 PTAGE: 63 years EKG: Sinus rhythm LOW QRS VOLTAGE IN PRECORDIAL LEADS BORDERLINE ECG NO PREVIOUS TRACING DOCTOR: Kayode Salazar Interpretating Date/Time 04/20/2018 15:22:58
--- NOTE | 2018-04-20 15:58 | MB ---
cc: Arik Sweeney MD DATE: 04/20/2018 REASON FOR CONSULTATION: Pericardial effusion. HISTORY OF PRESENT ILLNESS: The patient is a very pleasant 63-year-old gentleman with no prior cardiac history, who presented with generalized weakness, some shortness of breath, worsening exercise tolerance, and abdominal pain. The patient describes feeling generally poor over the last week or so, and his noticed he was unable to keep up their normal physical exercise which [place]. The patient also describes some vague chills and subjective fevers. He presented to the emergency department where initial workup included a CT scan showing a large pericardial effusion. At that point, a stat echocardiogram was performed, which confirmed a large 2-3 cm pericardial effusion with signs of early tamponade. He was emergently transferred to [facility], at which time he underwent a CT-guided pericardiocentesis with placement of a pericardial drain. The patient is feeling much better. He says that he no longer has any of the abdominal pain and is generally just feeling quite well. No chest pain, shortness of breath, lightheadedness, dizziness. PAST MEDICAL HISTORY: TIA. CURRENT MEDICATIONS: Morphine p.r.n. ALLERGIES: NO KNOWN DRUG ALLERGIES. PHYSICAL EXAMINATION: VITAL SIGNS: Afebrile, pulse 94, respiratory rate 18, BP 133/77, saturating 97 on room air. GENERAL: A very pleasant gentleman in no distress. NECK: No JVD. LUNGS: Clear to auscultation bilaterally. CARDIOVASCULAR: Regular rate and rhythm. No significant murmurs appreciated. ABDOMEN: Benign. EXTREMITIES: No edema. LABORATORY DATA: White count 10.6, hematocrit 38.8, platelets 360. ESR is 72. Sodium 130, potassium 5.1, chloride 96, bicarbonate 27, BUN 13, creatinine 0.94, glucose 118. C-reactive protein is 8.16. EKG showed low voltages and sinus rhythm. Echocardiogram showed normal ejection fraction but with a large pericardial effusion/early tamponade (prior to the pericardiocentesis/drain). IMPRESSION: Pretamponade/pericardial effusion. The patient is doing much better following drainage of his large pericardial effusion. Given his elevated ESR and C-reactive protein, this is probably due to a viral pericarditis. I will have standard pericardial effusion labs drawn to exclude less likely etiology such as infection and malignancy. PLAN: Will be to let the drain remain in place while he continues to drain as already 1 L has been removed, and at this point, there does continue to be pericardial drainage. Once the drain is removed, we can perform a followup echocardiogram, and hopefully, he can be discharged home in a couple of days. Thank you again for the opportunity to participate in this patient's care. MD KARELY Live/partha , 03:40 PM , 03:48 PM
[2018-04-21 05:36] LABS: Anion Gap 7 meq/L (5-15); Blood Urea Nitrogen 12 mg/dL (7-18); Carbon Dioxide 26.8 meq/L (21.0-32.0); Chloride 100 meq/L (98-107); Glomerular Filtration Rate Greater Than 89 mL/min (>89); Glucose,Random 114 mg/dL (74-106); Iron 19 mcg/dL (65-175); Potassium 4.2 meq/L (3.5-5.1); Sodium 134 meq/L (136-145)
[2018-04-21 05:38] LABS: % Iron Saturation 8.9 % (20-50); Ferritin 183 ng/mL (26-388); Total Iron Binding Capacity 213 mcg/dL (250-450)
[2018-04-21 06:11] LABS: Hepatitis A IgM Antibody Nonreactive (Nonreactive); Hepatitits B Surface Antigen Nonreactive (Nonreactive)
[2018-04-21] MEDS: Sodium Chloride 0.45 % Inj 1,000 ML IV.CONT SCH ×2 (06:34→21:02)
--- NOTE | 2018-04-21 09:44 | P.PNCA ---
Subjective Interval history: Pt doing great, only minimal drainage overnight Medications and Allergies Active Medications: Active Medications Enalaprilat (Vasotec Inj) 1.25 mg IV.PUSH Q6H PRN PRN Reason: SBP>160, DBP>90 Last Admin: 04/20/18 21:16 Dose: 1.25 mg Sodium Chloride (1/2 Normal Saline Inj) 1,000 mls @ 50 mls/hr IV.CONT .Q20H JOHN Last Admin: 04/21/18 06:34 Dose: 50 mls/hr Morphine Sulfate (Morphine Inj) 2 mg IV.PUSH Q4H PRN PRN Reason: PAIN 1-10 AND/OR FEVER >101F Last Admin: 04/20/18 18:07 Dose: 2 mg Sodium Chloride (Ns Flush) 2 ml IV.FLUSH PRN PRN PRN Reason: FLUSH AFTER USING IV ACCESS Last Admin: 04/20/18 10:44 Dose: 2 ml Allergies Allergy/AdvReac Type Severity Reaction Status Date / Time No Known Allergies Allergy Verified 04/20/18 05:49 Home Medications Medication Instructions Recorded Confirmed Type amoxicillin 250 mg PO BID 04/20/18 04/20/18 History aspirin [Aspir-Low] 81 mg PO DAILY 04/20/18 04/20/18 History Physical Exam Vital signs: Vital Signs 04/20/18 10:45 04/20/18 12:00 04/20/18 12:25 Temperature Pulse Rate 97 H Respiratory Rate 18 38 H Blood Pressure Pulse Oximetry 93 L 95 04/20/18 12:30 04/20/18 12:45 04/20/18 13:00 Temperature Pulse Rate 94 H 95 H 93 H Respiratory Rate 14 24 35 H Blood Pressure Pulse Oximetry 94 L 94 L 94 L 04/20/18 13:15 04/20/18 13:27 04/20/18 13:28 Temperature Pulse Rate 96 H 100 H Respiratory Rate 32 H 43 H Blood Pressure 142/76 H Pulse Oximetry 95 94 L 04/20/18 13:30 04/20/18 13:33 04/20/18 13:38 Temperature Pulse Rate 97 H 95 H 94 H Respiratory Rate 0 L 0 L 25 H Blood Pressure 154/88 H 139/79 Pulse Oximetry 95 94 L 96 04/20/18 13:43 04/20/18 13:45 04/20/18 13:48 Temperature Pulse Rate 92 H 89 94 H Respiratory Rate 21 32 H 25 H Blood Pressure 144/75 H 153/77 H Pulse Oximetry 96 95 96 04/20/18 13:53 04/20/18 13:58 04/20/18 14:00 Temperature Pulse Rate 98 H 101 H 100 H Respiratory Rate 21 33 H 30 H Blood Pressure 144/68 H 159/72 H Pulse Oximetry 95 94 L 90 L 04/20/18 14:08 04/20/18 14:13 04/20/18 14:15 Temperature Pulse Rate 101 H 102 H 102 H Respiratory Rate 40 H 37 H 34 H Blood Pressure 165/79 H 169/80 H Pulse Oximetry 89 L 87 L 89 L 04/20/18 14:18 04/20/18 14:23 04/20/18 14:30 Temperature Pulse Rate 101 H 101 H 100 H Respiratory Rate 29 H 34 H 36 H Blood Pressure 170/81 H 173/77 H Pulse Oximetry 92 L 94 L 95 04/20/18 14:32 04/20/18 14:45 04/20/18 14:47 Temperature Pulse Rate 100 H 105 H 106 H Respiratory Rate 37 H 39 H 38 H Blood Pressure 166/77 H 166/78 H Pulse Oximetry 95 96 95 04/20/18 14:51 04/20/18 15:00 04/20/18 15:02 Temperature Pulse Rate 94 H 101 H 105 H Respiratory Rate 42 H 35 H Blood Pressure 172/89 H Pulse Oximetry 95 95 04/20/18 15:03 04/20/18 15:15 04/20/18 15:30 Temperature Pulse Rate 104 H 102 H 103 H Respiratory Rate 38 H 31 H 40 H Blood Pressure 159/78 H Pulse Oximetry 95 93 L 94 L 04/20/18 15:45 04/20/18 16:00 04/20/18 16:15 Temperature 98 F Pulse Rate 102 H 101 H 103 H Respiratory Rate 25 H 31 H 21 Blood Pressure 159/84 H Pulse Oximetry 96 95 95 04/20/18 16:30 04/20/18 17:00 04/20/18 18:00 Temperature Pulse Rate 104 H 104 H 99 H Respiratory Rate 23 26 H 35 H Blood Pressure 175/84 H 168/87 H Pulse Oximetry 95 95 95 04/20/18 18:19 04/20/18 18:26 04/20/18 19:00 Temperature Pulse Rate 89 101 H Respiratory Rate 18 21 Blood Pressure 176/81 H Pulse Oximetry 97 04/20/18 19:17 04/20/18 19:45 04/20/18 20:00 Temperature 98.8 F Pulse Rate 110 H 101 H 103 H Respiratory Rate 21 23 19 Blood Pressure 170/80 H 164/90 H 183/85 H Pulse Oximetry 96 95 95 04/20/18 20:15 04/20/18 20:22 04/20/18 21:00 Temperature Pulse Rate 95 H 97 H 98 H Respiratory Rate 19 20 Blood Pressure 167/83 H 179/91 H Pulse Oximetry 95 95 04/20/18 22:00 04/20/18 23:00 04/20/18 23:20 Temperature Pulse Rate 99 H 99 H 100 H Respiratory Rate 20 19 18 Blood Pressure 149/84 H 125/72 Pulse Oximetry 95 96 96 04/21/18 00:00 04/21/18 01:00 04/21/18 01:35 Temperature 98.8 F Pulse Rate 103 H 94 H 94 H Respiratory Rate 18 18 23 Blood Pressure 135/75 135/75 Pulse Oximetry 96 96 97 04/21/18 02:00 04/21/18 02:27 04/21/18 02:57 Temperature Pulse Rate 97 H 94 H 95 H Respiratory Rate 24 20 22 Blood Pressure 130/76 Pulse Oximetry 96 96 04/21/18 03:05 04/21/18 03:07 04/21/18 04:00 Temperature 98.8 F Pulse Rate 97 H 94 H Respiratory Rate 22 Blood Pressure 125/64 Pulse Oximetry 97 04/21/18 04:26 04/21/18 05:00 04/21/18 05:01 Temperature Pulse Rate 89 89 89 Respiratory Rate 22 25 H 21 Blood Pressure 128/63 121/77 Pulse Oximetry 96 95 95 04/21/18 06:00 04/21/18 06:01 04/21/18 07:00 Temperature Pulse Rate 97 H 96 H 96 H Respiratory Rate 24 24 38 H Blood Pressure 151/94 H 164/86 H Pulse Oximetry 96 96 96 04/21/18 08:00 04/21/18 08:01 04/21/18 08:33 Temperature 98.6 F Pulse Rate 90 91 H Respiratory Rate 22 22 Blood Pressure 119/78 Pulse Oximetry 96 97 Intake & Output 04/20/18 04/21/18 04/21/18 18:59 06:59 18:59 Intake Total 900 / 900 680 / 680 180 / 180 Output Total 1400 / 1400 1010 / 1010 Balance -500 / -500 -330 / -330 180 / 180 Weight 87.9 kg 87.6 kg Intake: IV 500 / 500 1/2 Normal Saline Inj 1,000 ML 500 / 500 @ 50 mls/hr IV.CONT .Q20H JOHN Rx#:[id number] Oral 900 / 900 180 / 180 180 / 180 Output: Urine 1100 / 1100 1000 / 1000 Wound Drainage 300 / 300 10 / 10 # 1 Left Anterior Chest Hemovac 300 / 300 10 / 10 Other: # Voids 3 1 Date of Last Bowel Movement 04/17/18 04/17/18 Weight On Admission 87.9 kg - Constitutional no acute distress - Routine HEENT Exam Head: Present: normocephalic Eye: Present: EOMI ENT: Present: mucous membranes moist - Routine Neck Exam Present: supple - Routine Respiratory Exam Absent: accessory muscle use - Routine Cardiovascular Exam Present: RRR. Absent: murmur - Routine Extremities Exam Absent: edema Results 04/20/18 06:00 04/21/18 04:05 Cardiac Enzymes 04/20/18 Range/Units 06:00 AST 60 H (15-37) U/L Coagulation 04/20/18 04/20/18 Range/Units 12:00 12:00 PT 11.4 (9.8-11.6) sec APTT 33.6 H (23.4-31.7) sec CBC 04/20/18 Range/Units 06:00 WBC 7.6 (4.0-11.0) th/mm3 RBC 4.62 (4.50-5.90) mil/mm3 Hgb 12.8 L (13.0-17.0) gm/dL Hct 38.8 L (39.0-51.0) % Plt Count 360 (150-450) th/mm3 Neut # (Auto) 6.2 (1.8-7.7) th/mm3 Lymph # (Auto) 0.8 L (1.0-4.8) th/mm3 [place] # (Auto) 0.6 (0.0-0.9) th/mm3 Eos # (Auto) 0.0 (0.0-0.4) th/mm3 Baso # (Auto) 0.0 (0.0-0.2) th/mm3 Comprehensive Metabolic Panel 04/20/18 04/21/18 Range/Units 06:00 04:05 Sodium 130 L 134 L (136-145) meq/L Potassium 5.1 4.2 D (3.5-5.1) meq/L Chloride 96 L 100 (98-107) meq/L Carbon Dioxide 27.1 26.8 (21.0-32.0) meq/L BUN 13 12 (7-18) mg/dL Creatinine 0.94 0.82 (0.60-1.30) mg/dL Calcium 8.6 8.0 L (8.5-10.1) mg/dL AST 60 H (15-37) U/L ALT 66 (12-78) U/L Alkaline Phosphatase 111 (45-117) U/L Total Protein 7.8 (6.4-8.2) g/dL Albumin 3.0 L (3.4-5.0) g/dL Intake and Output 04/20/18 04/21/18 04/21/18 22:59 06:59 14:59 Intake Total 900 / 900 680 / 680 180 / 180 Output Total 1400 / 1400 1010 / 1010 Balance -500 / -500 -330 / -330 180 / 180 Intake: IV 500 / 500 1/2 Normal Saline Inj 1,000 ML 500 / 500 @ 50 mls/hr IV.CONT .Q20H [facility] Rx#:[id number] Oral 900 / 900 180 / 180 180 / 180 Output: Urine 1100 / 1100 1000 / 1000 Wound Drainage 300 / 300 10 / 10 # 1 Left Anterior Chest Hemovac 300 / 300 10 10 Other: # Voids 3 1 Date of Last Bowel Movement 04/17/18 04/17/18 Weight 87.6 kg - Imaging and Cardiology Imaging: Impressions Abdomen/Pelvis CT 04/20/18 05:51 CONCLUSION: 1. Huge pericardial effusion. 2. Hepatomegaly and passive congestion of the liver. 3. There are pockets of fluid within the right lower quadrant with fluid in the pelvis and haziness of paracolic gutter on the right side extending to perinephric space and the exact etiology is uncertain. Inflammatory and/or traumatic causes should be entertained. Assessment and Plan - Assessment (1) Cardiac/pericardial tamponade Code(s): I31.4 - Cardiac tamponade Status: Acute Plan: Doing great s/p drainage, give effusion was so large will opt to keep drain in today, if negligible output will ask to be pulled tomorrow. cytology pending, suspect inflammatory etiology
--- NOTE | 2018-04-21 12:45 | CT ---
EXAM DATE: 04/20/2018 4:28 PM EST AGE/SEX: 63 years / Male INDICATIONS: Pericardial effusion. CLINICAL DATA: This is the patient's initial encounter. Patient reports that signs and symptoms have been present for 1 day and indicates a pain score of 0/10. MEDICAL/SURGICAL HISTORY: None. None. COMPARISON: No prior exams available for comparison. SEDATION TIME (min): 15 BIOPSY SITE: pericardial effusion 1.5mg midazolam (Versed) IV 75mcg fentanyl (Sublimaze) IV DEVICE(S): 6 Fr Skater FLUID: Total volume of 800 of clear, red fluid was removed. Fluid was sent to lab for ordered studies.. . . PROCEDURE : CT guided drainage of the pericardial effusion. The risks, benefits and alternatives to the procedure were explained and verbal and written consent w as obtained. Using automated exposure control and adjustment of the mA and/or kV according to patient size, radiation dose was kept as low as reasonably achievable to obtain optimal diagnostic quality i mages. The site was prepped in sterile fashion. Full sterile technique was used, including cap, ma sk, sterile gloves and gown and a large sterile sheet. Hand hygiene and 2% chlorhexidine and/or beta dine/alcohol prep was utilized per protocol for cutaneous antisepsis. The skin and subcutaneous tiss ues were infiltrated with local anesthetic solution. DICOM format image data is available electronic ally for review and comparison. Using CT guidance the prescribed site was localized. Drainage was performed using the prescribed cat heter. The patient tolerated the procedure well and there were no complications. The patient tolerated the procedure well and there were no complications. The patient was sent to post anesthesia recovery in s table condition. FINDINGS: There are large pericardial effusion. CONCLUSION: 1. Uncomplicated CT guided pericardial drainage catheter placement. Electronically signed by: Yung Rodriguez MD Board Certified Radiologist 04/21/2018 12:44 PM EST
--- NOTE | 2018-04-21 14:28 | P.PNIM ---
Subjective Interval history: Patient reports that he has no further chest pain or abdominal pain. The only discomfort is around the tube from his chest. He has no active shortness of breath at this time. No complaint of chills or fever. Physical Exam Vital signs: Last Vital Signs Temp 98.1 F 04/21/18 12:00 Pulse 96 H 04/21/18 13:01 Resp 39 H 04/21/18 13:01 BP 120/81 04/21/18 13:01 Pulse Ox 97 04/21/18 13:01 Intake & Output 04/19/18 04/20/18 04/21/18 04/22/18 06:59 06:59 06:59 06:59 Intake Total 1580 / 1580 180 / 180 Output Total 2410 / 2410 Balance -830 / -830 180 / 180 Weight 87.9 kg 87.6 kg Narrative: GENERAL: This is a well-nourished, well-developed patient, in no apparent distress. CARDIOVASCULAR: Regular rate and rhythm CHEST WALL -pericardial drain in place with very minimal serosanguineous drainage, bandage clean dry and intact. RESPIRATORY: Clear to auscultation. Breath sounds equal bilaterally. No wheezes , rales, or rhonchi. GASTROINTESTINAL: Abdomen soft, non-tender, nondistended. Normal active bowel sounds MUSCULOSKELETAL: Extremities without clubbing, cyanosis, or edema. NEURO: Alert & Oriented x4 to person, place, time, situation. Moves all ext x4 Results Labs CBC & Chem 7: 04/20/18 06:00 04/21/18 04:05 Labs: Microbiology 04/20/18 14:00 Fluid - Other Gram Stain - Final Imaging Imaging: Impressions Pericardiocentesis 04/20/18 00:00 CONCLUSION: 1. Uncomplicated CT guided pericardial drainage catheter placement. Assessment and Plan (1) Cardiac/pericardial tamponade: Code(s): I31.4 - Cardiac tamponade Status: Acute (2) Pericarditis: Code(s): I31.9 - Disease of pericardium, unspecified Status: Acute Plan 63-year-old white male with no significant past medical history presents with generalized body aches, malaise, and pain in the left lower chest and right upper quadrant and was found to have Large symptomatic pericardial effusion approaching early tamponade status post pericardiocentesis with 800 cc removal with drain in place with interventional radiology. Pericardial fluid cultures currently pending. Cytology pending to rule out malignancy. Suspect possibly viral pericarditis and current workup in progress with elevated CRP. Rule out inflammatory versus autoimmune. Appreciate cardiology recommendations. If no significant further drainage while pull drain in the morning. 2D echo reviewed with patient today with normal EF Rheumatoid factor screening negative JEANETTE currently pending Hepatomegaly with passive congestion of the liver may be exacerbated due to his pericardial effusion -hepatitis profile negative, no significant elevation in hepatic function tests Abdominal pain with findings on CT abdomen pelvics with pockets of fluid within the right lower quadrant fluid the pelvis and haziness of the pericardial gutter on the right side of questionable etiology, patient has no further complaints of abdominal pain at this time. GI service has been consulted. Patient denies any recent trauma. History of TIA, restart home aspirin DVT prophylaxis SCDs Transfer out of intensive care unit to [facility] Progress Note: Quality VTE Deep Vein Thrombosis/Pulmonary Embolism Present on Admission: No
--- NOTE | 2018-04-21 16:27 | P.PNGI ---
Subjective Interval history: Pt is resting in bed, accompanied by . Endorses immense improvement s/p pericardiocentesis with 800 cc removal and pericardial drainage catheter placement. Tolerating diet okay, having regular BMs. No nausea, no vomiting or abd pain. Only discomfort is around the tube. <Max Elizondo - Last Filed: 04/21/18 16:17> Physical Exam Vital signs: Vital Signs 04/20/18 16:30 04/20/18 17:00 04/20/18 18:00 Temperature Pulse Rate 104 H 104 H 99 H Respiratory Rate 23 26 H 35 H Blood Pressure 175/84 H 168/87 H Pulse Oximetry 95 95 95 04/20/18 18:19 04/20/18 18:26 04/20/18 19:00 Temperature Pulse Rate 89 101 H Respiratory Rate 18 21 Blood Pressure 176/81 H Pulse Oximetry 97 04/20/18 19:17 04/20/18 19:45 04/20/18 20:00 Temperature 98.8 F Pulse Rate 110 H 101 H 103 H Respiratory Rate 21 23 19 Blood Pressure 170/80 H 164/90 H 183/85 H Pulse Oximetry 96 95 95 04/20/18 20:15 04/20/18 20:22 04/20/18 21:00 Temperature Pulse Rate 95 H 97 H 98 H Respiratory Rate 19 20 Blood Pressure 167/83 H 179/91 H Pulse Oximetry 95 95 04/20/18 22:00 04/20/18 23:00 04/20/18 23:20 Temperature Pulse Rate 99 H 99 H 100 H Respiratory Rate 20 19 18 Blood Pressure 149/84 H 125/72 Pulse Oximetry 95 96 96 04/21/18 00:00 04/21/18 01:00 04/21/18 01:35 Temperature 98.8 F Pulse Rate 103 H 94 H 94 H Respiratory Rate 18 18 23 Blood Pressure 135/75 135/75 Pulse Oximetry 96 96 97 04/21/18 02:00 04/21/18 02:27 04/21/18 02:57 Temperature Pulse Rate 97 H 94 H 95 H Respiratory Rate 24 20 22 Blood Pressure 130/76 Pulse Oximetry 96 96 04/21/18 03:05 04/21/18 03:07 04/21/18 04:00 Temperature 98.8 F Pulse Rate 97 H 94 H Respiratory Rate 22 Blood Pressure 125/64 Pulse Oximetry 97 04/21/18 04:26 04/21/18 05:00 04/21/18 05:01 Temperature Pulse Rate 89 89 89 Respiratory Rate 22 25 H 21 Blood Pressure 128/63 121/77 Pulse Oximetry 96 95 95 04/21/18 06:00 04/21/18 06:01 04/21/18 07:00 Temperature Pulse Rate 97 H 96 H 96 H Respiratory Rate 24 24 38 H Blood Pressure 151/94 H 164/86 H Pulse Oximetry 96 96 96 04/21/18 08:00 04/21/18 08:01 04/21/18 08:33 Temperature 98.6 F Pulse Rate 90 91 H Respiratory Rate 22 22 Blood Pressure 119/78 Pulse Oximetry 96 97 04/21/18 09:00 04/21/18 09:01 04/21/18 10:00 Temperature Pulse Rate 104 H 92 H 95 H Respiratory Rate 15 19 37 H Blood Pressure 126/78 Pulse Oximetry 97 97 94 L 04/21/18 10:01 04/21/18 11:00 04/21/18 11:01 Temperature Pulse Rate 95 H 94 H 96 H Respiratory Rate 35 H 38 H 30 H Blood Pressure 132/81 148/85 H Pulse Oximetry 94 L 96 96 04/21/18 12:00 04/21/18 12:01 04/21/18 13:00 Temperature 98.1 F Pulse Rate 95 H 96 H 95 H Respiratory Rate 36 H 37 H 37 H Blood Pressure 152/74 H Pulse Oximetry 97 97 97 04/21/18 13:01 Temperature Pulse Rate 96 H Respiratory Rate 39 H Blood Pressure 120/81 Pulse Oximetry 97 Intake & Output 04/20/18 04/21/18 04/21/18 18:59 06:59 18:59 Intake Total 900 / 900 680 / 680 180 / 180 Output Total 1400 / 1400 1010 / 1010 Balance -500 / -500 -330 / -330 180 / 180 Weight 87.9 kg 87.6 kg Intake: IV 500 / 500 1/2 Normal Saline Inj 1,000 ML 500 / 500 @ 50 mls/hr IV.CONT .Q20H JOHN Rx#:[id number] Oral 900 / 900 180 / 180 180 / 180 Output: Urine 1100 / 1100 1000 / 1000 Wound Drainage 300 / 300 10 / 10 # 1 Left Anterior Chest Hemovac 300 / 300 10 / 10 Other: # Voids 3 1 Date of Last Bowel Movement 04/17/18 04/17/18 Weight On Admission 87.9 kg Narrative: GENERAL: This is a well-nourished, well-developed patient, in no apparent distress. CARDIOVASCULAR: Regular rate and rhythm CHEST WALL -pericardial drain in place with minimal serosanguineous drainage, RESPIRATORY: Clear to auscultation. Breath sounds equal bilaterally. No wheezes , rales, or rhonchi. GASTROINTESTINAL: Abdomen soft, non-tender, nondistended. Normal active bowel sounds MUSCULOSKELETAL: Extremities without clubbing, cyanosis, or edema. NEURO: Alert & Oriented x4 to person, place, time, situation. Moves all ext x4 <Max Elizondo - Last Filed: 04/21/18 16:17> Vital signs: Vital Signs 04/20/18 19:17 04/20/18 19:45 04/20/18 20:00 Temperature 98.8 F Pulse Rate 110 H 101 H 103 H Respiratory Rate 21 23 19 Blood Pressure 170/80 H 164/90 H 183/85 H Pulse Oximetry 96 95 95 04/20/18 20:15 04/20/18 20:22 04/20/18 21:00 Temperature Pulse Rate 95 H 97 H 98 H Respiratory Rate 19 20 Blood Pressure 167/83 H 179/91 H Pulse Oximetry 95 95 04/20/18 22:00 04/20/18 23:00 04/20/18 23:20 Temperature Pulse Rate 99 H 99 H 100 H Respiratory Rate 20 19 18 Blood Pressure 149/84 H 125/72 Pulse Oximetry 95 96 96 04/21/18 00:00 04/21/18 01:00 04/21/18 01:35 Temperature 98.8 F Pulse Rate 103 H 94 H 94 H Respiratory Rate 18 18 23 Blood Pressure 135/75 135/75 Pulse Oximetry 96 96 97 04/21/18 02:00 04/21/18 02:27 04/21/18 02:57 Temperature Pulse Rate 97 H 94 H 95 H Respiratory Rate 24 20 22 Blood Pressure 130/76 Pulse Oximetry 96 96 04/21/18 03:05 04/21/18 03:07 04/21/18 04:00 Temperature 98.8 F Pulse Rate 97 H 94 H Respiratory Rate 22 Blood Pressure 125/64 Pulse Oximetry 97 04/21/18 04:26 04/21/18 05:00 04/21/18 05:01 Temperature Pulse Rate 89 89 89 Respiratory Rate 22 25 H 21 Blood Pressure 128/63 121/77 Pulse Oximetry 96 95 95 04/21/18 06:00 04/21/18 06:01 04/21/18 07:00 Temperature Pulse Rate 97 H 96 H 96 H Respiratory Rate 24 24 38 H Blood Pressure 151/94 H 164/86 H Pulse Oximetry 96 96 96 04/21/18 08:00 04/21/18 08:01 04/21/18 08:33 Temperature 98.6 F Pulse Rate 90 91 H Respiratory Rate 22 22 Blood Pressure 119/78 Pulse Oximetry 96 97 04/21/18 09:00 04/21/18 09:01 04/21/18 10:00 Temperature Pulse Rate 104 H 92 H 95 H Respiratory Rate 15 19 37 H Blood Pressure 126/78 Pulse Oximetry 97 97 94 L 04/21/18 10:01 04/21/18 11:00 04/21/18 11:01 Temperature Pulse Rate 95 H 94 H 96 H Respiratory Rate 35 H 38 H 30 H Blood Pressure 132/81 148/85 H Pulse Oximetry 94 L 96 96 04/21/18 12:00 04/21/18 12:01 04/21/18 13:00 Temperature 98.1 F Pulse Rate 95 H 96 H 95 H Respiratory Rate 28 H 37 H 37 H Blood Pressure 152/74 H Pulse Oximetry 97 97 97 04/21/18 13:01 04/21/18 14:19 04/21/18 15:00 Temperature Pulse Rate 96 H 98 H 97 H Respiratory Rate 39 H 31 H Blood Pressure 120/81 125/78 Pulse Oximetry 97 94 L 94 L 04/21/18 15:01 04/21/18 16:00 04/21/18 16:01 Temperature 98.1 F Pulse Rate 98 H 98 H 98 H Respiratory Rate 28 H 36 H 32 H Blood Pressure 128/70 129/75 Pulse Oximetry 93 L 99 98 04/21/18 17:00 04/21/18 18:00 04/21/18 18:01 Temperature Pulse Rate 94 H 96 H 98 H Respiratory Rate 23 36 H 33 H Blood Pressure 125/85 Pulse Oximetry 95 96 95 Intake & Output 04/21/18 04/21/18 04/22/18 06:59 18:59 06:59 Intake Total 680 / 680 780 / 780 Output Total 1010 / 1010 Balance -330 / -330 780 / 780 Weight 87.6 kg Intake: IV 500 / 500 1/2 Normal Saline Inj 1,000 ML 500 / 500 @ 50 mls/hr IV.CONT .Q20H JOHN Rx#:[id number] Oral 180 / 180 780 / 780 Output: Urine 1000 / 1000 Wound Drainage # 1 Left Anterior Chest Hemovac Other: # Voids 1 4 Date of Last Bowel Movement 04/17/18 <Lenora Bobby - Last Filed: 04/21/18 19:30> Results - Labs CBC & Chem 7: 04/20/18 06:00 04/21/18 04:05 Laboratory Results - last 24 hr 04/20/18 04/20/18 04/21/18 14:00 14:00 04:05 Sodium 134 L Potassium 4.2 D Chloride 100 Carbon Dioxide 26.8 Anion Gap 7 BUN 12 Creatinine 0.82 Estimated GFR Greater than 89 Random Glucose 114 H Calcium 8.0 L Iron 19 L TIBC 213 L % Saturation 8.9 L Ferritin 183 Pericard pH 8.0 Pericard RBC 46636 H Pericard Nuc Cells 5879 H Pericard Neutrophils 92 Pericard Lymphocytes 7 Pericard Histiocytes 1 Pericard Fld Comment Pericard Total Protein 5.7 Pericardial LDH 476 Pericardial Glucose 88 Hepatitis A IgM Ab Hep Bs Antigen Hep B Core IgM Ab Hep C IgG Ab 04/21/18 04:05 Sodium Potassium Chloride Carbon Dioxide Anion Gap BUN Creatinine Estimated GFR Random Glucose Calcium Iron TIBC % Saturation Ferritin Pericard pH Pericard RBC Pericard Nuc Cells Pericard Neutrophils Pericard Lymphocytes Pericard Histiocytes Pericard Fld Comment Pericard Total Protein Pericardial LDH Pericardial Glucose Hepatitis A IgM Ab Nonreactive Hep Bs Antigen Nonreactive Hep B Core IgM Ab Nonreactive Hep C IgG Ab Nonreactive Microbiology 04/20/18 14:00 Fluid - Other Gram Stain - Final 04/20/18 14:00 Fluid - Other Body Fluid Culture - Preliminary No growth in 24 hours - Imaging Impressions Pericardiocentesis 04/20/18 00:00 CONCLUSION: 1. Uncomplicated CT guided pericardial drainage catheter placement. <Max Elizondo - Last Filed: 04/21/18 16:17> - Labs CBC & Chem 7: 04/20/18 06:00 04/21/18 04:05 Laboratory Results - last 24 hr 04/21/18 04/21/18 04:05 04:05 Sodium 134 L Potassium 4.2 D Chloride 100 Carbon Dioxide 26.8 Anion Gap 7 BUN 12 Creatinine 0.82 Estimated GFR Greater than 89 Random Glucose 114 H Calcium 8.0 L Iron 19 L TIBC 213 L % Saturation 8.9 L Ferritin 183 Hepatitis A IgM Ab Nonreactive Hep Bs Antigen Nonreactive Hep B Core IgM Ab Nonreactive Hep C IgG Ab Nonreactive Microbiology 04/20/18 14:00 Fluid - Other Gram Stain - Final 04/20/18 14:00 Fluid - Other Body Fluid Culture - Preliminary No growth in 24 hours - Imaging Impressions Pericardiocentesis 04/20/18 00:00 CONCLUSION: 1. Uncomplicated CT guided pericardial drainage catheter placement. <DiamanteLenora - Last Filed: 04/21/18 19:30> Assessment and Plan - Plan - Abdominal pain- Endorses Endorses immense improvement s/p pericardiocentesis with 800 cc removal and pericardial drainage catheter placement. Tolerating diet okay, having regular BMs. No nausea, no vomiting or abd pain. Only discomfort is around the tube. onset few days prior to admission , pain became severe, pain to the left lower chest and LUQ area with radiation to entire stomach. States he had flu like symptoms for a couple of weeks with body ache and malaise. He was prescribed amoxicillin at the walk in clinic with out relief. He denies any fever, chills, cough, nausea, vomiting, diarrhea or bleeding. Abdomen/Pelvis CT 04/20/18 CONCLUSION: 1. Huge pericardial effusion. 2. Hepatomegaly and passive congestion of the liver. 3. There are pockets of fluid within the right lower quadrant with fluid in the pelvis and haziness of paracolic gutter on the right side extending to perinephric space and the exact etiology is uncertain. Inflammatory and/or traumatic causes should be entertained. - Elevated CRP - Pericardial effusion- Cardiology on the case. S/P pericardiocentesis with 800 cc removal with drain in place. Pericardial fluid cultures currently pending. Cytology pending to rule out malignancy. - Elevated AST- Denies alcohol or past liver issues, likely secondary to stress and cardiac related. Negative hepatitis panel. Liver work up pending Plan: - CHANTEL - Await results for fluid cx and cytology - Await JEANETTE, AMA, ASMA, ceruloplasmin, alpha 1 antitrypsin celiac panel, - Monitor labs - Supportive care - Pt seen and examined by Dr. Bobby and myself and this note is written on her behalf. <Max Elizondo - Last Filed: 04/21/18 16:17> - Attending Attestation agree with above repeat ct abd/pelvis in 2 days <Lenora Bobby - Last Filed: 04/21/18 19:30>
[2018-04-21] MEDS: Morphine Inj 4 MG/ML Vial IV.PUSH PRN (20:21)
[2018-04-22] MEDS: Sodium Chloride 0.45 % Inj 1,000 ML IV.CONT SCH (04:06)
[2018-04-22] MEDS: Morphine Inj 4 MG/ML Vial IV.PUSH PRN (08:53)
--- NOTE | 2018-04-22 10:31 | P.PNGI ---
Subjective Interval history: Patient awake and alert Sitting up in bed, spouse at bedside Reports increased comfort post pericardiocentesis Denies shortness of breath States tolerating diet well, denies nausea vomiting or abdominal pain. Endorses only minimal discomfort at tube site <Francoise Robins - Last Filed: 04/22/18 10:25> Physical Exam Vital signs: Vital Signs 04/21/18 11:00 04/21/18 11:01 04/21/18 12:00 Temperature 98.1 F Pulse Rate 94 H 96 H 95 H Respiratory Rate 38 H 30 H 28 H Blood Pressure 148/85 H Pulse Oximetry 96 96 97 04/21/18 12:01 04/21/18 13:00 04/21/18 13:01 Temperature Pulse Rate 96 H 95 H 96 H Respiratory Rate 37 H 37 H 39 H Blood Pressure 152/74 H 120/81 Pulse Oximetry 97 97 97 04/21/18 14:19 04/21/18 15:00 04/21/18 15:01 Temperature Pulse Rate 98 H 97 H 98 H Respiratory Rate 31 H 28 H Blood Pressure 125/78 128/70 Pulse Oximetry 94 L 94 L 93 L 04/21/18 16:00 04/21/18 16:01 04/21/18 17:00 Temperature 98.1 F Pulse Rate 98 H 98 H 94 H Respiratory Rate 36 H 32 H 23 Blood Pressure 129/75 Pulse Oximetry 99 98 95 04/21/18 18:00 04/21/18 18:01 04/21/18 20:15 Temperature 97.8 F Pulse Rate 96 H 98 H 96 H Respiratory Rate 36 H 33 H 16 Blood Pressure 125/85 122/77 Pulse Oximetry 96 95 95 04/21/18 21:00 04/21/18 22:00 04/21/18 23:00 Temperature Pulse Rate 90 92 H 90 Respiratory Rate Blood Pressure Pulse Oximetry 04/21/18 23:19 04/22/18 00:00 04/22/18 01:00 Temperature 98.0 F Pulse Rate 78 88 90 Respiratory Rate 15 Blood Pressure 96/55 L Pulse Oximetry 98 04/22/18 02:00 04/22/18 03:33 04/22/18 04:16 Temperature 97.7 F Pulse Rate 91 H 90 91 H Respiratory Rate 15 Blood Pressure 97/72 L Pulse Oximetry 92 L 04/22/18 05:00 04/22/18 06:10 04/22/18 07:00 Temperature 98.3 F Pulse Rate 94 H 95 H 100 H Respiratory Rate 16 Blood Pressure 112/58 L Pulse Oximetry 92 L Intake & Output 04/21/18 04/22/18 04/22/18 18:59 06:59 18:59 Intake Total 780 / 780 1660 / 1660 Output Total 255 / 255 Balance 780 / 780 1405 / 1405 Weight 87.1 kg Intake: IV 1420 / 1420 1/2 Normal Saline Inj 1,000 ML 1420 / 1420 @ 50 mls/hr IV.CONT .Q20H JOHN Rx#:[id number] Oral 780 / 780 240 / 240 Output: Urine 250 / 250 Wound Drainage # 1 Left Anterior Chest Hemovac Other: # Voids 4 - Constitutional no acute distress, cooperative - Routine HEENT Exam Head: Present: normocephalic - Routine Respiratory Exam Present: CTA bilaterally. Absent: accessory muscle use - Routine Cardiovascular Exam Present: RRR, S1, S2 - Routine Abdominal Exam Present: soft, normoactive bowel sounds. Absent: tenderness, distended, guarding, firm - Routine Extremities Exam Absent: edema - Routine Skin Exam Present: dry, warm. Absent: pallor - Routine Neurological Exam Present: alert, oriented X3 <Robins,Francoise - Last Filed: 04/22/18 10:25> Vital signs: Vital Signs 04/21/18 20:15 04/21/18 21:00 04/21/18 22:00 Temperature 97.8 F Pulse Rate 96 H 90 92 H Respiratory Rate 16 Blood Pressure 122/77 Pulse Oximetry 95 04/21/18 23:00 04/21/18 23:19 04/22/18 00:00 Temperature 98.0 F Pulse Rate 90 78 88 Respiratory Rate 15 Blood Pressure 96/55 L Pulse Oximetry 98 04/22/18 01:00 04/22/18 02:00 04/22/18 03:33 Temperature 97.7 F Pulse Rate 90 91 H 90 Respiratory Rate 15 Blood Pressure 97/72 L Pulse Oximetry 92 L 04/22/18 04:16 04/22/18 05:00 04/22/18 06:10 Temperature Pulse Rate 91 H 94 H 95 H Respiratory Rate Blood Pressure Pulse Oximetry 04/22/18 07:00 04/22/18 08:00 04/22/18 09:00 Temperature 98.3 F Pulse Rate 100 H 106 H 98 H Respiratory Rate 16 Blood Pressure 112/58 L Pulse Oximetry 92 L 04/22/18 10:00 04/22/18 11:00 04/22/18 12:00 Temperature 98.8 F Pulse Rate 92 H 97 H 108 H Respiratory Rate 16 Blood Pressure 116/64 Pulse Oximetry 91 L 04/22/18 13:00 04/22/18 14:00 04/22/18 15:00 Temperature 98.7 F Pulse Rate 100 H 102 H 97 H Respiratory Rate 16 Blood Pressure 119/72 Pulse Oximetry 91 L Intake & Output 04/21/18 04/22/18 04/22/18 18:59 06:59 18:59 Intake Total 780 / 780 1660 / 1660 480 / 480 Output Total 255 / 255 Balance 780 / 780 1405 / 1405 480 / 480 Weight 87.1 kg Intake: IV 1420 / 1420 480 / 480 1/2 Normal Saline Inj 1,000 ML 1420 / 1420 480 / 480 @ 50 mls/hr IV.CONT .Q20H [facility] Rx#:[id number] Oral 780 / 780 240 / 240 Output: Urine 250 / 250 Wound Drainage 5 / 5 # 1 Left Anterior Chest Hemovac 5 / 5 Other: # Voids 4 <Sapna Bonilla - Last Filed: 04/23/18 15:53> Results - Labs CBC & Chem 7: 04/20/18 06:00 04/21/18 04:05 Microbiology 04/20/18 14:00 Fluid - Other Gram Stain - Final 04/20/18 14:00 Fluid - Other Body Fluid Culture - Preliminary No growth in 24 hours - Imaging Impressions Pericardiocentesis 04/20/18 00:00 CONCLUSION: 1. Uncomplicated CT guided pericardial drainage catheter placement. <Francoise Robins - Last Filed: 04/22/18 10:25> - Labs CBC & Chem 7: 04/23/18 09:02 04/23/18 09:02 Laboratory Results - last 24 hr 04/20/18 04/22/18 12:00 16:15 Sodium 131 L Potassium 4.1 Chloride 99 Carbon Dioxide 24.7 Anion Gap 7 BUN 15 Creatinine 0.68 Estimated GFR Greater than 89 Random Glucose 101 Calcium 8.0 L JEANETTE Screen Neg Microbiology 04/20/18 14:00 Fluid - Other Gram Stain - Final 04/20/18 14:00 Fluid - Other Body Fluid Culture - Preliminary No growth in 48 hours <Sapna Bonilla - Last Filed: 04/23/18 15:53> Assessment and Plan - Plan - Abdominal pain- Endorses Endorses immense improvement s/p pericardiocentesis with 800 cc removal and pericardial drainage catheter placement. Tolerating diet okay, having regular BMs. No nausea, no vomiting or abd pain. Only discomfort is around the tube. onset few days prior to admission , pain became severe, pain to the left lower chest and LUQ area with radiation to entire stomach. States he had flu like symptoms for a couple of weeks with body ache and malaise. He was prescribed amoxicillin at the walk in clinic with out relief. He denies any fever, chills, cough, nausea, vomiting, diarrhea or bleeding. Abdomen/Pelvis CT 04/20/18 CONCLUSION: 1. Huge pericardial effusion. 2. Hepatomegaly and passive congestion of the liver. 3. There are pockets of fluid within the right lower quadrant with fluid in the pelvis and haziness of paracolic gutter on the right side extending to perinephric space and the exact etiology is uncertain. Inflammatory and/or traumatic causes should be entertained. - Elevated CRP - Pericardial effusion- Cardiology on the case. S/P pericardiocentesis with 800 cc removal with drain in place. Pericardial fluid cultures currently pending. Cytology pending to rule out malignancy. - Elevated AST- Denies alcohol or past liver issues, likely secondary to stress and cardiac related. Negative hepatitis panel. Liver work up pending 04/22/2018 Patient denies nausea vomiting or abdominal pain States only discomfort at tube site-post pericardiocentesis 04/20/2018 hemoglobin 12.8 hematocrit 38.8 Total bilirubin 1.0 AST 60 ALT 66 alk phos 111 C-reactive protein 8.1 Plan -Diet as tolerated -Fluid cytology pending -Liver serum immunology pending -Continue to monitor labs -Supportive care This patient has been seen by myself and Dr. Bonilla and this note is written on his behalf - Attending Attestation Dr. Bonilla <Francoise Robins - Last Filed: 04/22/18 10:25> - Attending Attestation As above, symptoms likely from liver passive congestion. Workup pending. Will follow up with you. <Sapna Bonilla - Last Filed: 04/23/18 15:53>
--- NOTE | 2018-04-22 10:59 | P.PNCA ---
Subjective Interval history: Doing great, negligible drainage from pericardial drain Medications and Allergies Active Medications: Active Medications Aspirin (Ecotrin) 81 mg PO DAILY [facility] Last Admin: 04/22/18 08:53 Dose: 81 mg Enalaprilat (Vasotec Inj) 1.25 mg IV.PUSH Q6H PRN PRN Reason: SBP>160, DBP>90 Last Admin: 04/20/18 21:16 Dose: 1.25 mg Sodium Chloride (1/2 Normal Saline Inj) 1,000 mls @ 50 mls/hr IV.CONT .Q20H [facility] Last Infusion: 04/22/18 06:34 Dose: 50 mls/hr Morphine Sulfate (Morphine Inj) 2 mg IV.PUSH Q4H PRN PRN Reason: PAIN 1-10 AND/OR FEVER >101F Last Admin: 04/22/18 08:53 Dose: 2 mg Sodium Chloride (Ns Flush) 2 ml IV.FLUSH PRN PRN PRN Reason: FLUSH AFTER USING IV ACCESS Last Admin: 04/21/18 20:21 Dose: 2 ml Allergies Allergy/AdvReac Type Severity Reaction Status Date / Time No Known Allergies Allergy Verified 04/20/18 05:49 Home Medications Medication Instructions Recorded Confirmed Type amoxicillin 250 mg PO BID 04/20/18 04/20/18 History aspirin [Aspir-Low] 81 mg PO DAILY 04/20/18 04/20/18 History Physical Exam Vital signs: Vital Signs 04/21/18 11:00 04/21/18 11:01 04/21/18 12:00 Temperature 98.1 F Pulse Rate 94 H 96 H 95 H Respiratory Rate 38 H 30 H 28 H Blood Pressure 148/85 H Pulse Oximetry 96 96 97 04/21/18 12:01 04/21/18 13:00 04/21/18 13:01 Temperature Pulse Rate 96 H 95 H 96 H Respiratory Rate 37 H 37 H 39 H Blood Pressure 152/74 H 120/81 Pulse Oximetry 97 97 97 04/21/18 14:19 04/21/18 15:00 04/21/18 15:01 Temperature Pulse Rate 98 H 97 H 98 H Respiratory Rate 31 H 28 H Blood Pressure 125/78 128/70 Pulse Oximetry 94 L 94 L 93 L 04/21/18 16:00 04/21/18 16:01 04/21/18 17:00 Temperature 98.1 F Pulse Rate 98 H 98 H 94 H Respiratory Rate 36 H 32 H 23 Blood Pressure 129/75 Pulse Oximetry 99 98 95 04/21/18 18:00 04/21/18 18:01 04/21/18 20:15 Temperature 97.8 F Pulse Rate 96 H 98 H 96 H Respiratory Rate 36 H 33 H 16 Blood Pressure 125/85 122/77 Pulse Oximetry 96 95 95 04/21/18 21:00 04/21/18 22:00 04/21/18 23:00 Temperature Pulse Rate 90 92 H 90 Respiratory Rate Blood Pressure Pulse Oximetry 04/21/18 23:19 04/22/18 00:00 04/22/18 01:00 Temperature 98.0 F Pulse Rate 78 88 90 Respiratory Rate 15 Blood Pressure 96/55 L Pulse Oximetry 98 04/22/18 02:00 04/22/18 03:33 04/22/18 04:16 Temperature 97.7 F Pulse Rate 91 H 90 91 H Respiratory Rate 15 Blood Pressure 97/72 L Pulse Oximetry 92 L 04/22/18 05:00 04/22/18 06:10 04/22/18 07:00 Temperature 98.3 F Pulse Rate 94 H 95 H 100 H Respiratory Rate 16 Blood Pressure 112/58 L Pulse Oximetry 92 L Intake & Output 04/21/18 04/22/18 04/22/18 18:59 06:59 18:59 Intake Total 780 / 780 1660 / 1660 Output Total 255 / 255 Balance 780 / 780 1405 / 1405 Weight 87.1 kg Intake: IV 1420 / 1420 1/2 Normal Saline Inj 1,000 ML 1420 / 1420 @ 50 mls/hr IV.CONT .Q20H [facility] Rx#:[id number] Oral 780 / 780 240 / 240 Output: Urine 250 / 250 Wound Drainage 5 / 5 # 1 Left Anterior Chest Hemovac 5 / 5 Other: # Voids 4 - Constitutional no acute distress - Routine HEENT Exam Head: Present: normocephalic ENT: Present: mucous membranes moist - Routine Neck Exam Absent: JVD - Routine Respiratory Exam Present: CTA bilaterally - Routine Cardiovascular Exam Absent: murmur - Routine Abdominal Exam Present: soft - Routine Extremities Exam Absent: edema Results 04/20/18 06:00 04/21/18 04:05 Coagulation 04/20/18 04/20/18 Range/Units 12:00 12:00 PT 11.4 (9.8-11.6) sec APTT 33.6 H (23.4-31.7) sec Comprehensive Metabolic Panel 04/21/18 Range/Units 04:05 Sodium 134 L (136-145) meq/L Potassium 4.2 D (3.5-5.1) meq/L Chloride 100 (98-107) meq/L Carbon Dioxide 26.8 (21.0-32.0) meq/L BUN 12 (7-18) mg/dL Creatinine 0.82 (0.60-1.30) mg/dL Calcium 8.0 L (8.5-10.1) mg/dL Intake and Output 04/21/18 04/22/18 04/22/18 22:59 06:59 14:59 Intake Total 1600 / 1600 660 / 660 Output Total 255 / 255 Balance 1600 / 1600 405 / 405 Intake: IV 1000 / 1000 420 / 420 1/2 Normal Saline Inj 1,000 ML 1000 / 1000 420 / 420 @ 50 mls/hr IV.CONT .Q20H JOHN Rx#:[id number] Oral 600 / 600 240 / 240 Output: Urine 250 / 250 Wound Drainage 5 / 5 # 1 Left Anterior Chest Hemovac 5 / 5 Other: # Voids 4 Weight 87.1 kg - Imaging and Cardiology Imaging: Impressions Pericardiocentesis 04/20/18 00:00 CONCLUSION: 1. Uncomplicated CT guided pericardial drainage catheter placement. Assessment and Plan - Assessment (1) Cardiac/pericardial tamponade Code(s): I31.4 - Cardiac tamponade Status: Acute Plan: will ask drain to be pulled, observe o/n, limited echo in am, if no significant effusion ok to d/c home - Plan will plan on seeing in my office in 1-2 weeks.
--- NOTE | 2018-04-22 15:39 | P.PNIM ---
Subjective Interval history: Nursing denies any acute changes overnight. Patient himself denies any shortness of breath chest pains. Only reports some chest pain upon very deep breathing. Physical Exam Vital signs: Vital Signs 04/21/18 16:00 04/21/18 16:01 04/21/18 17:00 Temperature 98.1 F Pulse Rate 98 H 98 H 94 H Respiratory Rate 36 H 32 H 23 Blood Pressure 129/75 Pulse Oximetry 99 98 95 04/21/18 18:00 04/21/18 18:01 04/21/18 20:15 Temperature 97.8 F Pulse Rate 96 H 98 H 96 H Respiratory Rate 36 H 33 H 16 Blood Pressure 125/85 122/77 Pulse Oximetry 96 95 95 04/21/18 21:00 04/21/18 22:00 04/21/18 23:00 Temperature Pulse Rate 90 92 H 90 Respiratory Rate Blood Pressure Pulse Oximetry 04/21/18 23:19 04/22/18 00:00 04/22/18 01:00 Temperature 98.0 F Pulse Rate 78 88 90 Respiratory Rate 15 Blood Pressure 96/55 L Pulse Oximetry 98 04/22/18 02:00 04/22/18 03:33 04/22/18 04:16 Temperature 97.7 F Pulse Rate 91 H 90 91 H Respiratory Rate 15 Blood Pressure 97/72 L Pulse Oximetry 92 L 04/22/18 05:00 04/22/18 06:10 04/22/18 07:00 Temperature 98.3 F Pulse Rate 94 H 95 H 100 H Respiratory Rate 16 Blood Pressure 112/58 L Pulse Oximetry 92 L 04/22/18 08:00 04/22/18 09:00 04/22/18 10:00 Temperature Pulse Rate 106 H 98 H 92 H Respiratory Rate Blood Pressure Pulse Oximetry 04/22/18 11:00 04/22/18 12:00 04/22/18 13:00 Temperature 98.8 F Pulse Rate 97 H 108 H 100 H Respiratory Rate 16 Blood Pressure 116/64 Pulse Oximetry 91 L 04/22/18 14:00 04/22/18 15:00 Temperature 98.7 F Pulse Rate 102 H 97 H Respiratory Rate 16 Blood Pressure 119/72 Pulse Oximetry 91 L Intake & Output 04/21/18 04/22/18 04/22/18 18:59 06:59 18:59 Intake Total 780 / 780 1660 / 1660 Output Total 255 / 255 Balance 780 / 780 1405 / 1405 Weight 87.1 kg Intake: IV 1420 / 1420 1/2 Normal Saline Inj 1,000 ML 1420 / 1420 @ 50 mls/hr IV.CONT .Q20H [facility] Rx#:[id number] Oral 780 / 780 240 / 240 Output: Urine 250 / 250 Wound Drainage # 1 Left Anterior Chest Hemovac / Other: # Voids 4 Narrative: Clear lungs bilaterally, unlabored breathing Heart sounds regular rate and rhythm, no murmurs No lower extremity edema Sitting up in bed, awake and alert, no acute distress pericardial Drain has been pulled Results - Labs CBC & Chem 7: 04/20/18 06:00 04/21/18 04:05 Laboratory Results - last 24 hr 04/20/18 12:00 JEANETTE Screen Neg Microbiology 04/20/18 14:00 Fluid - Other Gram Stain - Final 04/20/18 14:00 Fluid - Other Body Fluid Culture - Preliminary No growth in 48 hours Assessment and Plan - Assessment (1) Cardiac/pericardial tamponade Code(s): I31.4 - Cardiac tamponade Status: Acute (2) Pericarditis Code(s): I31.9 - Disease of pericardium, unspecified Status: Acute - Plan 63-year-old white male with no significant past medical history presents with generalized body aches, malaise, and pain in the left lower chest and right upper quadrant and was found to have Large symptomatic pericardial effusion approaching early tamponade s/p pericardiocentesis was 800 cc removal Fluid cultures and cytology pending Possibly viral versus autoimmune -Drain removed EF within normal limits Hepatomegaly -Likely secondary to passive congestion, no elevation in LFTs Likely stable, monitor is in a patient Abdominal pain with findings on CT abdomen pelvics with pockets of fluid within the right lower quadrant fluid the pelvis and haziness of the pericardial gutter on the right side of questionable etiology, patient has no further complaints of abdominal pain at this time. GI service has been consulted. Patient denies any recent trauma. History of TIA, home aspirin DVT prophylaxis SCDs
[2018-04-22 17:37] LABS: Anion Gap 7 meq/L (5-15); Blood Urea Nitrogen 15 mg/dL (7-18); Carbon Dioxide 24.7 meq/L (21.0-32.0); Chloride 99 meq/L (98-107); Glomerular Filtration Rate Greater Than 89 mL/min (>89); Glucose,Random 101 mg/dL (74-106); Potassium 4.1 meq/L (3.5-5.1); Sodium 131 meq/L (136-145)
[2018-04-23 01:21] VITALS: RESP 18
[2018-04-23] MEDS ORDERED: Diatrizoate Meglum/Diatrizoate Sod Liq 9 ML UDC PO ONE (09:00)
[2018-04-23 09:45] LABS: Baso % (Auto) 0.4 % (0.0-2.0); Eos # (Auto) 0.1 th/mm3 (0.0-0.4); Eos % (Auto) 1.3 % (0.0-4.0); Hematocrit 41.8 % (39.0-51.0); Hemoglobin 14.1 gm/dL (13.0-17.0); Lymph % (Auto) 13.8 % (9.0-44.0); Mean Corpuscular HGB Conc 33.7 % (32.0-36.0); Mean Corpuscular Hemoglobin 28.7 pg (27.0-34.0); Mean Corpuscular Volume 85.3 fL (80.0-100.0); Mean Platelet Volume 8.1 fL (7.0-11.0); Mono # (Auto) 0.6 th/mm3 (0.0-0.9); Mono % (Auto) 8.5 % (0.0-8.0); Neut # (Auto) 5.6 th/mm3 (1.8-7.7); Platelet Count 425 th/mm3 (150-450); White Blood Count 7.3 th/mm3 (4.0-11.0)
[2018-04-23 10:09] LABS: Albumin 2.6 g/dL (3.4-5.0); Anion Gap 8 meq/L (5-15); Aspartate Aminotransferase 17 U/L (15-37); Blood Urea Nitrogen 13 mg/dL (7-18); Calcium 8.6 mg/dL (8.5-10.1); Chloride 96 meq/L (98-107); Glomerular Filtration Rate Greater Than 89 mL/min (>89); Glucose,Random 89 mg/dL (74-106); Potassium 3.9 meq/L (3.5-5.1); Sodium 133 meq/L (136-145)
[2018-04-23 10:10] LABS: Alanine Aminotransferase 29 U/L (12-78)
[2018-04-23 10:13] LABS: Alkaline Phosphatase 85 U/L (45-117); Total Protein 6.9 g/dL (6.4-8.2)
[2018-04-23 12:03] VITALS: BP 110/55; TEMP 98.2; O2SAT 94
--- NOTE | 2018-04-23 12:48 | P.PNGI ---
Subjective Interval history: Patient awake and alert Sitting up in chair Denies nausea vomiting or abdominal pain Pericardial catheter removed, dressing dry and intact <Francoise Robins - Last Filed: 04/23/18 12:44> Physical Exam Vital signs: Vital Signs 04/22/18 13:00 04/22/18 14:00 04/22/18 15:00 Temperature 98.7 F Pulse Rate 100 H 102 H 97 H Respiratory Rate 16 Blood Pressure 119/72 Pulse Oximetry 91 L 04/22/18 16:00 04/22/18 17:00 04/22/18 18:00 Temperature Pulse Rate 94 H 98 H 96 H Respiratory Rate Blood Pressure Pulse Oximetry 04/22/18 19:00 04/22/18 20:00 04/22/18 21:00 Temperature Pulse Rate 90 86 89 Respiratory Rate Blood Pressure Pulse Oximetry 04/22/18 21:30 04/22/18 22:00 04/22/18 23:00 Temperature 98.7 F Pulse Rate 90 90 90 Respiratory Rate 16 Blood Pressure 112/64 Pulse Oximetry 90 L 04/23/18 00:00 04/23/18 00:47 04/23/18 01:00 Temperature 98.7 F Pulse Rate 86 86 72 Respiratory Rate 18 Blood Pressure 130/65 Pulse Oximetry 96 04/23/18 02:00 04/23/18 03:00 04/23/18 04:00 Temperature 98.9 F Pulse Rate 72 85 72 Respiratory Rate 18 Blood Pressure 102/58 L Pulse Oximetry 97 04/23/18 05:00 04/23/18 06:00 04/23/18 07:00 Temperature 98.4 F Pulse Rate 81 101 H 90 Respiratory Rate 18 Blood Pressure 113/68 Pulse Oximetry 95 04/23/18 08:00 04/23/18 09:00 04/23/18 10:00 Temperature Pulse Rate 92 H 91 H 91 H Respiratory Rate Blood Pressure Pulse Oximetry 04/23/18 11:00 04/23/18 12:00 Temperature 98.2 F Pulse Rate 89 89 Respiratory Rate 18 Blood Pressure 110/55 L Pulse Oximetry 94 L Intake & Output 04/22/18 04/23/18 04/23/18 18:59 06:59 18:59 Intake Total 1170 / 1170 240 / 240 Output Total 1050 / 1050 Balance 120 / 120 240 / 240 Weight 87.3 kg Intake: IV 480 / 480 1/2 Normal Saline Inj 1,000 ML 480 / 480 @ 50 mls/hr IV.CONT .Q20H [facility] Rx#:[id number] Oral 690 / 690 240 / 240 Output: Urine 1050 / 1050 Other: # Voids 3 - Constitutional no acute distress, cooperative - Routine HEENT Exam Head: Present: normocephalic - Routine Respiratory Exam Present: CTA bilaterally - Routine Cardiovascular Exam Present: RRR - Routine Abdominal Exam Present: soft, normoactive bowel sounds. Absent: tenderness, distended, firm - Routine Extremities Exam Absent: edema - Routine Skin Exam Present: dry, warm Comments: Dressing left anterior chest wall dry and intact - Routine Neurological Exam Present: alert, oriented X3 - Routine Psychiatric Exam Present: normal affect, cooperative <Francoise Robins - Last Filed: 04/23/18 12:44> Vital signs: Vital Signs 04/22/18 16:00 04/22/18 17:00 04/22/18 18:00 Temperature Pulse Rate 94 H 98 H 96 H Respiratory Rate Blood Pressure Pulse Oximetry 04/22/18 19:00 04/22/18 20:00 04/22/18 21:00 Temperature Pulse Rate 90 86 89 Respiratory Rate Blood Pressure Pulse Oximetry 04/22/18 21:30 04/22/18 22:00 04/22/18 23:00 Temperature 98.7 F Pulse Rate 90 90 90 Respiratory Rate 16 Blood Pressure 112/64 Pulse Oximetry 90 L 04/23/18 00:00 04/23/18 00:47 04/23/18 01:00 Temperature 98.7 F Pulse Rate 86 86 72 Respiratory Rate 18 Blood Pressure 130/65 Pulse Oximetry 96 04/23/18 02:00 04/23/18 03:00 04/23/18 04:00 Temperature 98.9 F Pulse Rate 72 85 72 Respiratory Rate 18 Blood Pressure 102/58 L Pulse Oximetry 97 04/23/18 05:00 04/23/18 06:00 04/23/18 07:00 Temperature 98.4 F Pulse Rate 81 101 H 90 Respiratory Rate 18 Blood Pressure 113/68 Pulse Oximetry 95 04/23/18 08:00 04/23/18 09:00 04/23/18 10:00 Temperature Pulse Rate 92 H 91 H 91 H Respiratory Rate Blood Pressure Pulse Oximetry 04/23/18 11:00 04/23/18 12:00 04/23/18 13:00 Temperature 98.2 F Pulse Rate 89 89 97 H Respiratory Rate 18 Blood Pressure 110/55 L Pulse Oximetry 94 L Intake & Output 04/22/18 04/23/18 04/23/18 18:59 06:59 18:59 Intake Total 1170 / 1170 240 / 240 Output Total 1050 / 1050 Balance 120 / 120 240 / 240 Weight 87.3 kg Intake: IV 480 / 480 1/2 Normal Saline Inj 1,000 ML 480 / 480 @ 50 mls/hr IV.CONT .Q20H [facility] Rx#:[id number] Oral 690 / 690 240 / 240 Output: Urine 1050 / 1050 Other: # Voids 3 <Sapna Bonilla A - Last Filed: 04/23/18 15:57> Results - Labs CBC & Chem 7: 04/23/18 09:02 04/23/18 09:02 Laboratory Results - last 24 hr 04/20/18 04/22/18 04/23/18 12:00 16:15 09:02 WBC 7.3 RBC 4.90 Hgb 14.1 Hct 41.8 MCV 85.3 MCH 28.7 MCHC 33.7 RDW 14.0 Plt Count 425 MPV 8.1 Neut % (Auto) 76.0 H Lymph % (Auto) 13.8 Harper % (Auto) 8.5 H Eos % (Auto) 1.3 Baso % (Auto) 0.4 Neut # (Auto) 5.6 Lymph # (Auto) 1.0 Harper # (Auto) 0.6 Eos # (Auto) 0.1 Baso # (Auto) 0.0 WBC Differential . Differential Comment Auto diff final Sodium 131 L Potassium 4.1 Chloride 99 Carbon Dioxide 24.7 Anion Gap 7 BUN 15 Creatinine 0.68 Estimated GFR Greater than 89 Random Glucose 101 Calcium 8.0 L Total Bilirubin AST ALT Alkaline Phosphatase Total Protein Albumin JEANETTE Screen Neg 04/23/18 09:02 WBC RBC Hgb Hct MCV MCH MCHC RDW Plt Count MPV Neut % (Auto) Lymph % (Auto) Harper % (Auto) Eos % (Auto) Baso % (Auto) Neut # (Auto) Lymph # (Auto) Harper # (Auto) Eos # (Auto) Baso # (Auto) WBC Differential Differential Comment Sodium 133 L Potassium 3.9 Chloride 96 L Carbon Dioxide 29.0 Anion Gap 8 BUN 13 Creatinine 0.84 Estimated GFR Greater than 89 Random Glucose 89 Calcium 8.6 Total Bilirubin 0.5 AST 17 ALT 29 Alkaline Phosphatase 85 Total Protein 6.9 D Albumin 2.6 L JEANETTE Screen Microbiology 04/20/18 14:00 Fluid - Other Gram Stain - Final 04/20/18 14:00 Fluid - Other Body Fluid Culture - Final No growth in 72 hours (aerobically and anaerobically ) <Francoise Robins - Last Filed: 04/23/18 12:44> - Labs CBC & Chem 7: 04/23/18 09:02 04/23/18 09:02 Laboratory Results - last 24 hr 04/22/18 04/23/18 04/23/18 16:15 09:02 09:02 WBC 7.3 RBC 4.90 Hgb 14.1 Hct 41.8 MCV 85.3 MCH 28.7 MCHC 33.7 RDW 14.0 Plt Count 425 MPV 8.1 Neut % (Auto) 76.0 H Lymph % (Auto) 13.8 Harper % (Auto) 8.5 H Eos % (Auto) 1.3 Baso % (Auto) 0.4 Neut # (Auto) 5.6 Lymph # (Auto) 1.0 Harper # (Auto) 0.6 Eos # (Auto) 0.1 Baso # (Auto) 0.0 WBC Differential . Differential Comment Auto diff final Sodium 131 L 133 L Potassium 4.1 3.9 Chloride 99 96 L Carbon Dioxide 24.7 29.0 Anion Gap 7 8 BUN 15 13 Creatinine 0.68 0.84 Estimated GFR Greater than 89 Greater than 89 Random Glucose 101 89 Calcium 8.0 L 8.6 Total Bilirubin 0.5 AST 17 ALT 29 Alkaline Phosphatase 85 Total Protein 6.9 D Albumin 2.6 L Microbiology 04/20/18 14:00 Fluid - Other Gram Stain - Final 04/20/18 14:00 Fluid - Other Body Fluid Culture - Final No growth in 72 hours (aerobically and anaerobically ) <Sapna Bonilla - Last Filed: 04/23/18 15:57> Assessment and Plan - Plan - Abdominal pain- Endorses Endorses immense improvement s/p pericardiocentesis with 800 cc removal and pericardial drainage catheter placement. Tolerating diet okay, having regular BMs. No nausea, no vomiting or abd pain. Only discomfort is around the tube. onset few days prior to admission , pain became severe, pain to the left lower chest and LUQ area with radiation to entire stomach. States he had flu like symptoms for a couple of weeks with body ache and malaise. He was prescribed amoxicillin at the walk in clinic with out relief. He denies any fever, chills, cough, nausea, vomiting, diarrhea or bleeding. Abdomen/Pelvis CT 04/20/18 CONCLUSION: 1. Huge pericardial effusion. 2. Hepatomegaly and passive congestion of the liver. 3. There are pockets of fluid within the right lower quadrant with fluid in the pelvis and haziness of paracolic gutter on the right side extending to perinephric space and the exact etiology is uncertain. Inflammatory and/or traumatic causes should be entertained. - Elevated CRP - Pericardial effusion- Cardiology on the case. S/P pericardiocentesis with 800 cc removal with drain in place. Pericardial fluid cultures currently pending. Cytology pending to rule out malignancy. - Elevated AST- Denies alcohol or past liver issues, likely secondary to stress and cardiac related. Negative hepatitis panel. Liver work up pending 04/22/2018 Patient denies nausea vomiting or abdominal pain States only discomfort at tube site-post pericardiocentesis 04/20/2018 hemoglobin 12.8 hematocrit 38.8 Total bilirubin 1.0 AST 60 ALT 66 alk phos 111 C-reactive protein 8.1 04/23/2018 Denies nausea vomiting abdominal pain. Denies shortness of breath WBC 7.3 hemoglobin 14.1 hematocrit 41.8 Total bilirubin 0.5 AST 17 ALT 29 alk phos 85 all within normal limits Possible passive hepatic congestion Plan -Diet as tolerated -Fluid cytology pending -Liver serum immunology pending -Continue to monitor labs -Supportive care -Stable from GI standpoint -Patient agrees to follow-up with GI post discharge in 1 week -GI will sign off at this time, please notify for any further assistance required This patient has been seen by myself and Dr. Bonilla and this note is written on his behalf - Attending Attestation Dr. Bonilla <Francoise Robins - Last Filed: 04/23/18 12:44> - Attending Attestation As above, please notify us if needed again. <Sapna Bonilla - Last Filed: 04/23/18 15:57>
--- NOTE | 2018-04-23 13:23 | P.DS ---
DS: Providers Date of admission: 04/20/18 07:53 Primary care physician: No Primary Care Physician Consults: 04/20/18 08:53 Consult to Gastroenterology Routine Consulting Provider: Lenora Bobby Reason for Consultation: abdominal pain. Notified:: Service Spoke with:: Raghu Date Notified:: 04/20/18 Time Notified:: 08:57 Ordering Provider: JENNA 04/20/18 08:54 Consult to Cardiology Routine Consulting Provider: Arki Sweeney Does the patient have a Chief Gauger who follows them?: No Preferred Cuff Turner:: Applications Engineering Manager Physician Reason for Consultation: pericardial effusion. Notified:: Service Spoke with:: Raghu Date Notified:: 04/20/18 Time Notified:: 08:58 Ordering Provider: JENNA Brief History from admission: patient is a 63 y/o male with history of TIA- otherwise with no other significant past medical history, who presented to ER with generalized body ache and some pain to the left lower chest and RUQ. he says that he hasn't been feeling well for the past few days with generalized body ache and malaise. he says that he was prescribed amoxicillin three days ago but it didn't seem to be helping him. he says that he started to have some pain to the left lower chest and RUQ. pain was mild to moderate in intensity. he denies any fever, chills,cough, nausea/ vomiting or diarrhea. he says that he had a swelling of his left little finger in summer which went away on its own. otherwise he doesn't recall any other joint swelling. he denies any recent trauma. Patient update on day of discharge: Patient reports that he feels good after the drain is removed. He has no chest pain or shortness of breath. No fevers or chills. No further abdominal pain since coming into the hospital. Wants to go home. DS: Diagnosis Discharge Diagnosis (1) Pericarditis: Status: Acute (2) Cardiac/pericardial tamponade: Status: Acute (3) Pericardial effusion: Status: Acute DS: Summary 63-year-old white male with no significant past medical history presents with generalized body aches, malaise and pain in the left lower chest and right upper quadrant was found to have a large symptomatic pericardial effusion approaching early tamponade in which digital production operator, Dr. Jurado consulted interventional radiology for a stat pericardiocentesis and 800 cc was removed. Pericardial fluid cultures were negative. Cytology is currently pending. This is likely viral inflammation as autoimmune is unlikely with negative rheumatoid factor and JEANETTE. Workup currently in progress. A drain was placed with no significant output and was removed after 2 days. Patient also had hepatomegaly likely secondary to passive congestion from the pericardial effusion with no elevation in LFTs. CT abdomen pelvis showed pockets of fluid in the right lower quadrant of the pelvis and haziness in the pericardial gutter on the right side of questionable etiology. Patient had no recurrent abdominal pain since admission to the hospital. His hepatitis profile was negative. GI service was consulted and no further new recommendations were made. Repeat echo showed moderate posterior pericardial effusion with normal EF. This was discussed with Dr. Jurado who cleared him for discharge with repeat 2D echo to be done at his office in 3 days this April 26 with close outpatient follow-up. Time Spent with Patient Total time spent providing and/or coordinating discharge services: Less than 30 minutes Quality: VTE Deep Vein Thrombosis/Pulmonary Embolism Present on Admission: No Exam HENMT Head: normocephalic and atraumatic Nose: no nasal discharge and no epistaxis Mouth: moist mucous membranes Eyes Sclera: normal sclerae Pupils: PERRL Neck Neck: trachea midline and no JVD Chest Chest: other Other: Drainage site bandages clean dry and intact Resp Effort & Inspection: no use of accessory muscles Auscultation: clear to auscultation bilaterally Cardio Rate: regular rate Rhythm: regular rhythm Heart Sounds: no murmurs GI Inspection: non-distended Palpation: soft, no hepatosplenomegaly and nontender Skin General: dry skin (warm) Neuro General: alert and awake Cranial Nerves: other Speech: speech normal Motor: no movement abnormalities noted Extrem General: normal to inspection, no clubbing, no cyanosis and no edema Psych Mood: congruent mood Affect: normal affect Judgment: judgment good Results Procedures completed during hospitalization: 04/20 pericardiocentesis with interventional radiology Labs on day of discharge: Labs from last 24 hours 04/23/18 04/23/18 04/22/18 09:02 09:02 16:15 WBC 7.3 RBC 4.90 Hgb 14.1 Hct 41.8 MCV 85.3 MCH 28.7 MCHC 33.7 RDW 14.0 Plt Count 425 MPV 8.1 Neut % (Auto) 76.0 H Lymph % (Auto) 13.8 Labette % (Auto) 8.5 H Eos % (Auto) 1.3 Baso % (Auto) 0.4 Neut # (Auto) 5.6 Lymph # (Auto) 1.0 Labette # (Auto) 0.6 Eos # (Auto) 0.1 Baso # (Auto) 0.0 WBC Differential . Differential Comment Auto diff final Sodium 133 L 131 L Potassium 3.9 4.1 Chloride 96 L 99 Carbon Dioxide 29.0 24.7 Anion Gap 8 7 BUN 13 15 Creatinine 0.84 0.68 Estimated GFR Greater than 89 Greater than 89 Random Glucose 89 101 Calcium 8.6 8.0 L Total Bilirubin 0.5 AST 17 ALT 29 Alkaline Phosphatase 85 Total Protein 6.9 D Albumin 2.6 L JEANETTE Screen 04/20/18 12:00 WBC RBC Hgb Hct MCV MCH MCHC RDW Plt Count MPV Neut % (Auto) Lymph % (Auto) Labette % (Auto) Eos % (Auto) Baso % (Auto) Neut # (Auto) Lymph # (Auto) Labette # (Auto) Eos # (Auto) Baso # (Auto) WBC Differential Differential Comment Sodium Potassium Chloride Carbon Dioxide Anion Gap BUN Creatinine Estimated GFR Random Glucose Calcium Total Bilirubin AST ALT Alkaline Phosphatase Total Protein Albumin JEANETTE Screen Neg Impressions ITS Impressions Pericardiocentesis 04/20/18 00:00 CONCLUSION: 1. Uncomplicated CT guided pericardial drainage catheter placement. Abdomen/Pelvis CT 04/20/18 05:51 CONCLUSION: 1. Huge pericardial effusion. 2. Hepatomegaly and passive congestion of the liver. 3. There are pockets of fluid within the right lower quadrant with fluid in the pelvis and haziness of paracolic gutter on the right side extending to perinephric space and the exact etiology is uncertain. Inflammatory and/or traumatic causes should be entertained. Discharge Plan Discharge Disposition Patient Disposition: 01 Discharge Home Discharge Condition Condition: Good Discharge Order Discharge Orders: Discharge Order (Routine); Ordered 04/23/18 Ordered By: Mariam Finn Discharge Details Discharge Comment: Discharge if results of today's ECHO looks stable Physicians Team ED Provider: Rudi Hernandez Primary Care Provider: Primary Care Physici,No Attending Provider: Mariam Finn Other Providers: Arik Sweeney ; Lenora Bobby Rxs /Orders / Referrals /Forms Prescriptions: Continue aspirin [Aspir-Low] 81 mg Tablet,Delayed Release (Dr/Ec) 81 mg PO DAILY RF: 0 Discontinued amoxicillin 250 mg Capsule 250 mg PO BID RF: 0 Referrals: Arik Sweeney MD [Physician] - See Instructions ( Please call the physician's office to book the appointment to be seen within 3 to 5 days. Schedule ECHO in his office this SundayApr 26) Primary Care Nathaly Dejesus [Primary Care Provider] - See Instructions Post Discharge Care Plan Care Plan Goals: Your Health Problems: Pericardial effusion, pericarditis Goals to Promote Your Health: * To prevent worsening of your condition * To maintain your health at the optimal level Directions to Meet Your Goals: * Take your medications as prescribed * Follow your dietary instruction * Follow activity as directed * Keep your appointments as scheduled * Take your immunizations and boosters as scheduled * If your symptoms worsen call your PCP * If no PCP go to Urgent Care or Emergency Room Smoking is dangerous to your health. Avoid second hand smoke. You may reach the 24-hour crisis hotline for domestic abuse at . Status ED Status: Left Department
[2018-04-23 13:48] VITALS: PULSE 97
--- NOTE | 2018-04-23 15:29 | ECHRPT ---
Indication: Effusion CONCLUSIONS Normal left ventricular size. Wall thickness is measured at the upper limits of normal. The left ventricular systolic function is normal with an estimated ejection fraction in the range of 55-60%. Normal atrial septal thickness. Mitral annular calcification is present. Aortic valve sclerosis is present. There is a moderate size posterior pericardial effusion. No evidence of hemodynamic compromise. A left sided pleural effusion is present. BP: / HR: Rhythm: MEASUREMENTS (Male / Female) Normal Values Technical Quality:Fair 2D ECHO LV Diastolic Diameter PLAX 3.8 cm 4.2 - 5.9 / 3.9 - 5.3 cm LV Systolic Diameter PLAX 2.6 cm IVS Diastolic Thickness 1.0 cm 0.6 - 1.0 / 0.6 - 0.9 cm LVPW Diastolic Thickness 1.1 cm 0.6 - 1.0 / 0.6 - 0.9 cm LV Relative Wall Thickness 0.6 RV Internal Dim ED PLAX 2.5 cm Aortic Root Diameter 2.8 cm LA Systolic Diameter LX 3.3 cm 3.0 - 4.0 / 2.7 - 3.8 cm FINDINGS LEFT VENTRICLE Normal left ventricular size. Wall thickness is measured at the upper limits of normal. The left ventricular systolic function is normal with an estimated ejection fraction in the range of 55-60%. RIGHT VENTRICLE Normal right ventricular size and systolic function. LEFT ATRIUM The left atrial size is normal. RIGHT ATRIUM The right atrial size is normal. ATRIAL SEPTUM Normal atrial septal thickness. AORTA The aortic root and proximal ascending aorta are normal in size on limited imaging. MITRAL VALVE Mitral annular calcification is present. AORTIC VALVE Trileaflet aortic valve. Aortic valve sclerosis is present. TRICUSPID VALVE Structurally normal tricuspid valve. PULMONARY VALVE The pulmonary valve is not well visualized. VESSELS The inferior vena cava is normal in size. PERICARDIUM There is a moderate size posterior pericardial effusion present. No evidence of hemodynamic compromi se. A left sided pleural effusion is present. Chidi Pimentel MD, FACC (Electronically Signed) Final Date:23 April 2018 15:28
[2018-04-24 14:42] LABS: Alpha 1 Antitrypsin 215 mg/dL (100 - 190)
[2018-04-24 19:51] LABS: Ceruloplasmin 37 mg/dL (18-36)
[2018-04-25 03:49] LABS: DS DNA Ab (Crithidia) NEGATIVE (NEGATIVE)
== END 2018-04-23 16:48 | disposition home or self-care (01) | DRG 316 ==
LOC: PHED 05:29 → PHEDA 07:53 → PH3 08:46 → N03 11:54 → HCPC 04-21 20:10
PROVIDERS: ADMIT Family Medicine; ATTEND Family Medicine
DX: I30.1 Infective pericarditis; R79.82 Elevated C-reactive protein (CRP); B97.89 Other viral agents as the cause of diseases classified elsewhere; Z80.0 Family history of malignant neoplasm of digestive organs; I31.4 Cardiac tamponade; R16.0 Hepatomegaly, not elsewhere classified; Z79.82 Long term (current) use of aspirin; K76.1 Chronic passive congestion of liver; Z86.73 Personal history of transient ischemic attack (TIA), and cerebral infarction without residual deficits; Z94.7 Corneal transplant status
CPT/HCPCS: 33010; 74177; 76360; 77012; 80048; 80053; 80074; 81001; 82103; 82390; 82728; 82945; 83516; 83520; 83540; 83550; 83615; 83690; 83735; 83986; 84155; 84157; 85025; 85610; 85651; 85652; 85730; 86038; 86039; 86140; 86225; 86235; 86255; 86256; 86430; 86431; 87070; 87205; 88112; 88305; 89051; 93005; 93306; 93308; 99152; 99285; C1729; C1769; J2250; J2270; J3010; Q9967